=== PATIENT | male | born 1965 | race Caucasian/White ===

== ENCOUNTER 2017-05-08 09:23 | Inpatient (IN) ==
[2017-05-08] MEDS ORDERED: 0.9 % Sodium Chloride 1,000 ML IVC ONE (09:57)
[2017-05-08 10:23] LABS: Basophils # 0.1 K/mcL (0.0-0.2); Basophils % 0.5 %; Eosinophils # 0.2 K/mcL (0.0-0.6); Eosinophils % 1.1 %; Hematocrit 30.2 % (37.5-50.1); Hemoglobin 9.5 g/dL (12.9-16.9); Immature Granulocytes % 1.9 % (0-4); Lymphocytes # 1.5 K/mcL (0.6-4.6); Lymphocytes % 7.9 %; Mean Corpuscular HGB Conc 31.5 g/dL (31.6-35.5); Mean Corpuscular Hemoglobin 23.3 pg (28.0-33.3); Mean Corpuscular Volume 74.2 fL (83.0-100.0); Mean Platelet Volume 10.3 fL (9.4-12.4); Monocytes # 2.7 K/mcL (0.0-1.3); Monocytes % 14.5 %; Neutrophils # 13.9 K/mcL (1.6-8.9); Platelet Count 281 K/mcL (140-400); Red Blood Count 4.07 M/mcL (4.19-5.50); Red Cell Distribution Width 18.6 % (11.5-14.5); Segmented Neutrophils % 74.1 %
[2017-05-08 10:28] LABS: INR 1.6; Prothrombin Time 17.7 Seconds (9.4-12.1)
[2017-05-08 10:38] LABS: Alanine Aminotransferase 32 Units/L (0-55); Albumin/Globulin Ratio 0.3 (1.1-2.2); Alkaline Phosphatase 606 Units/L (38-126); Aspartate Amino Transferase 49 Units/L (5-34); BUN/Creatinine Ratio 22 (6-26); Bilirubin,Total 1.4 mg/dL (0.2-1.2); Blood Urea Nitrogen 17 mg/dL (8-26); Calcium 8.4 mg/dL (8.6-10.8); Carbon Dioxide 24 mEq/L (19-29); Chloride 100 mEq/L (98-109); Globulin 5.6 g/dL (2.4-3.5); Glucose 98 mg/dL (70-99); Osmolality,Calculated 278 (280-300); Potassium 4.2 mEq/L (3.5-4.5); Sodium 133 mEq/L (136-145); Total Protein 7.3 g/dL (6.0-8.3); eGFR For African Americans > 60 (> 60); eGFR For Non-African Americans > 60 (> 60)
[2017-05-08 10:41] LABS: Albumin 1.7 g/dL (3.5-5.0)
[2017-05-08] MEDS ORDERED: *HR* Heparin 5,000 UNIT/ML VIAL IVP ONE (12:03)
[2017-05-08] MEDS ORDERED: Heparin 25,000 UNIT/500 ML D5W 25,000 UNIT/500 ML MLS IVC SCH (12:15)
--- NOTE | 2017-05-08 13:11 | Emergency Department Note ---
Addendum entered and electronically signed by Agustín Canela DO 05/09/17 07:24: Ek08 may 2017 at 0943 hrs: Sinus Tachycardia at a rate of 100BPM without ST elevation or derpression. compared with previous shows sinus rhthym Original Note: Disposition Clinical Impression: Bilateral pulmonary embolism, Liver nodule, Hepatic metastases, Acute bilateral deep vein thrombosis (DVT) of iliac veins of lower extremities, Acute bilateral deep vein thrombosis (DVT) of femoral veins DVT, bilateral lower limbs Qualifiers: Affected thrombotic vein of extremity: femoral Chronicity: acute Qualified Code (s): I82.413 - Acute embolism and thrombosis of femoral vein, bilateral Disposition: Admitted As Inpatient Condition: Serious Time of Disposition: 14:00 General Adult HPI - General Chief complaint: ED Extremity Problem,Nontraumatic Stated complaint: BLE pain, "dvt" Time Seen by Provider: 05/08/17 09:32 Source: patient Mode of arrival: ambulatory Limitations: no limitations Nursing Notes Reviewed: Yes Vital Signs Reviewed: Yes - History of Present Illness HPI Narrative: Patient is a 52-year-old male who was referred to the ED by his PCP Zaina Meade for complaints of bilateral lower extremity swelling and pain. Patient was identified as having bilateral lower extremity DVTs 1 day ago. Patient left AGAINST MEDICAL ADVICE and came back today. Patient presents with tachycardia but no shortness of breath no abdominal pain. Patient does not complain of leg pain at this time. 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 Patient states he has not seen a doctor in 30 years. Pain Scale: 8 - Related Data Home Medications Medication Instructions Recorded Confirmed No Known Home Drugs 05/08/17 05/08/17 Allergies Allergy/AdvReac Type Severity Reaction Status Date / Time lidocaine Allergy Agitated Verified 05/08/17 09:28 All systems ED: reviewed and negative except as stated. Review of Systems: As Per HPI Constitutional: Denies: fever, chills, weakness Eyes: Denies: vision change ENT ED: Denies: congestion Cardiovascular: Denies: chest pain Respiratory: Denies: cough, dyspnea, wheezes Gastrointestinal: Denies: abdominal pain, nausea, vomiting, diarrhea Genitourinary: Denies: urgency, dysuria Musculoskeletal: Denies: back pain, neck pain Integumentary: Denies: rash Neurological: Denies: headache Psychiatric: Denies: anxiety Endocrine: Denies: fatigue Past Medical History - Past Medical History Attestation: Yes The following information was validated with the patient. Source: patient Medical history: Reports: no medical history Psychiatric history: Reports: no psych history - Social History Smoking Status: Current every day smoker Smokeless Tobacco Status: No Alcohol use: Reports: none Drug use: Reports: marijuana Physical Exam Patient is a 52-year-old male who is alert and oriented 3 in no acute distress. Patient has no conversational dyspnea. - General Limitations: no limitations General appearance: alert, in no apparent distress - Head Head exam: atraumatic, normocephalic, normal inspection - Eye Eye exam: Present: normal appearance, PERRL, EOMI - ENT ENT exam: normal exam, normal oropharynx, mucous membranes dry - Neck Neck exam: Present: normal inspection, full ROM, trachea midline. Absent: tenderness - Chest Chest inspection: Present: normal inspection, symmetric chest wall rise. Absent : tenderness, rash - Respiratory Respiratory exam: Present: normal lung sounds bilaterally. Absent: wheezes - Cardiovascular Cardiovascular exam: Present: normal rhythm, tachycardia - Abdominal Exam Abdominal exam: Present: other (Abdomen nontender to palpation soft on the left hemisphere of the abdomen but solid on the right side. Patient's liver palpable almost always patient's hip on the right side.) - Extremities Exam Extremities exam: Present: pedal edema (Bilateral 2+ pitting edema). Absent: normal inspection, tenderness - Back Exam Back exam: Present: normal inspection. Absent: tenderness, CVA tenderness (R), CVA tenderness (L) - Neurological Exam Neurological exam: Present: alert, oriented X3 Course Vital Signs Temperature 98.1 F 05/08/17 09:25 Pulse Rate 111 05/08/17 09:25 Respiratory Rate 16 05/08/17 09:25 Blood Pressure 121/85 05/08/17 09:25 O2 Sat by Pulse Oximetry 98 05/08/17 09:25 Temperature 98.7 F 05/10/17 15:20 Pulse Rate 112 05/10/17 15:20 Respiratory Rate 16 05/10/17 15:20 Blood Pressure 120/76 05/10/17 15:20 O2 Sat by Pulse Oximetry 97 05/10/17 15:20 Oxygen Delivery Oxygen Delivery Room Air Medical Decision Making - MDM Narrative Medical decision making narrative: Patient presented with bilateral lower extremity DVTs confirm an Doppler ultrasound of lower extremities times one day ago. When he presented today he was tachycardic which raise concerns for PE. Patient also had irregular abdominal exam with right hemisphere of his abdomen with a palpable solid mass secondary to low lying liver. Patient's combination of signs and symptoms raise further concern for neoplastic process and CT abdomen and pelvis was obtained. Results showed: IMPRESSION: Per radiology: 1. Acute bilateral pulmonary emboli with the largest embolus in a segmental branch of the right lower lobe. Associated pulmonary infarct in the posterior basal right lower lobe. RV:LV ratio measures 1.2 which is considered abnormal. 2. Bilateral common femoral and external iliac vein occlusive deep venous thrombosis. No definite common iliac vein extension. 3. Centrilobular 2 mm nodules scattered throughout the lungs. The primary consideration is an infectious etiology. 4. Multiple hepatic metastases with the largest measuring up to 9 cm. 5. Enlarged upper abdominal lymph nodes compatible with neoplastic involvement. 6. Questionable wall thickening in the cecum/right colon. No other site for the primary neoplasm is identified. 7. Small-moderate amount of ascites. Patient started on heparin bolus and 70 units per kilogram and heparin drip at 14 units per kilogram per hour. Patient's not having any pain. I consulted oncology and discussed the case with Aravind Martinez nurse practitioner who stated that Dr. Morales is road freight conductor and advised me to order B12, folate , TSH, serum light chain, protein electrophoresis, ferritin, iron studies. Recommended admission to the patient. Patient accepted decision for admission. Patient is admitted for medical management and will see oncology inpatient. Dr. Longo accepted Pt for admission at 1419hrs. - Medical Records Medical records reviewed: Yes I reviewed the patient's medical records. - Lab Data Lab results reviewed: Yes I reviewed the patient's lab results. Lab results narrative: Short CBC 05/08/17 Range/Units 10:14 WBC 18.8 H (4.3-11.1) K/mcL Hgb 9.5 L (12.9-16.9) g/dL Hct 30.2 L (37.5-50.1) % Plt Count 281 (140-400) K/mcL Neutrophils # 13.9 H (1.6-8.9) K/mcL BMP 05/08/17 Range/Units 10:14 Sodium 133 L (136-145) mEq/L Potassium 4.2 (3.5-4.5) mEq/L Chloride 100 (98-109) mEq/L Carbon Dioxide 24 (19-29) mEq/L BUN 17 (8-26) mg/dL Creatinine 0.77 (0.72-1.25) mg/dL Glucose 98 (70-99) mg/dL Calcium 8.4 L (8.6-10.8) mg/dL Cardiac Enzymes 05/08/17 05/08/17 05/08/17 Range/Units 20:26 14:21 10:14 Troponin I 0.01 0.00 0.00 (0-0.03) ng/mL Liver Function 05/08/17 05/08/17 Range/Units 14:21 10:14 Total Bilirubin 1.4 H (0.2-1.2) mg/dL AST 55 H 49 H (5-34) Units/L ALT 32 (0-55) Units/L Alkaline Phosphatase 606 H (38-126) Units/L Albumin 1.7 L (3.5-5.0) g/dL Result diagrams: 05/10/17 14:47 05/10/17 14:47 Lab Results 05/08/17 05/08/17 05/08/17 Range/Units 10:14 10:14 10:14 WBC 18.8 H (4.3-11.1) K/mcL RBC 4.07 L (4.19-5.50) M/mcL Hgb 9.5 L (12.9-16.9) g/dL Hct 30.2 L (37.5-50.1) % MCV 74.2 L (83.0-100.0) fL MCH 23.3 L (28.0-33.3) pg MCHC 31.5 L (31.6-35.5) g/dL RDW 18.6 H (11.5-14.5) % Plt Count 281 (140-400) K/mcL MPV 10.3 (9.4-12.4) fL Immature Gran % 1.9 (0-4) % Seg Neutrophils % 74.1 % Lymphocytes % 7.9 % Monocytes % 14.5 % Eosinophils % 1.1 % Basophils % 0.5 % Neutrophils # 13.9 H (1.6-8.9) K/mcL Lymphocytes # 1.5 (0.6-4.6) K/mcL Monocytes # 2.7 H (0.0-1.3) K/mcL Eosinophils # 0.2 (0.0-0.6) K/mcL Basophils # 0.1 (0.0-0.2) K/mcL PT 17.7 H (9.4-12.1) Seconds INR 1.6 APTT 32.0 (26.0-36.0) Seconds Sodium 133 L (136-145) mEq/L Potassium 4.2 (3.5-4.5) mEq/L Chloride 100 (98-109) mEq/L Carbon Dioxide 24 (19-29) mEq/L BUN 17 (8-26) mg/dL Creatinine 0.77 (0.72-1.25) mg/dL Est GFR ( Amer) > 60 (> 60) Est GFR (Non-Af Amer) > 60 (> 60) BUN/Creatinine Ratio 22 (6-26) Glucose 98 (70-99) mg/dL POC Glucose (58-89) Calculated Osmolality 278 L (280-300) Lactic Acid (0.5-2.2) mmol/L Calcium 8.4 L (8.6-10.8) mg/dL Iron (65-175) mcg/dL % Saturation (20-55) % Transferrin (174-364) mg/dL Ferritin (22-275) ng/ml Total Bilirubin 1.4 H (0.2-1.2) mg/dL AST 49 H (5-34) Units/L ALT 32 (0-55) Units/L Alkaline Phosphatase 606 H (38-126) Units/L Lactate Dehydrogenase (159-327) Units/L Troponin I (0-0.03) ng/mL B-Natriuretic Peptide (0-100) pg/mL Serum Total Protein 7.3 (6.0-8.3) g/dL Albumin 1.7 L (3.5-5.0) g/dL Globulin 5.6 H (2.4-3.5) g/dL Albumin/Globulin Ratio 0.3 L (1.1-2.2) Carcinoembryonic Ag (0-5.0) ng/mL Vitamin B12 (213-816) pg/mL Folate (7.0-31.4) ng/mL TSH (0.350-4.840) mcIU/mL 05/08/17 05/08/17 05/08/17 Range/Units 10:14 10:14 11:40 WBC (4.3-11.1) K/mcL RBC (4.19-5.50) M/mcL Hgb (12.9-16.9) g/dL Hct (37.5-50.1) % MCV (83.0-100.0) fL MCH (28.0-33.3) pg MCHC (31.6-35.5) g/dL RDW (11.5-14.5) % Plt Count (140-400) K/mcL MPV (9.4-12.4) fL Immature Gran % (0-4) % Seg Neutrophils % % Lymphocytes % % Monocytes % % Eosinophils % % Basophils % % Neutrophils # (1.6-8.9) K/mcL Lymphocytes # (0.6-4.6) K/mcL Monocytes # (0.0-1.3) K/mcL Eosinophils # (0.0-0.6) K/mcL Basophils # (0.0-0.2) K/mcL PT (9.4-12.1) Seconds INR APTT (26.0-36.0) Seconds Sodium (136-145) mEq/L Potassium (3.5-4.5) mEq/L Chloride (98-109) mEq/L Carbon Dioxide (19-29) mEq/L BUN (8-26) mg/dL Creatinine (0.72-1.25) mg/dL Est GFR ( Amer) (> 60) Est GFR (Non-Af Amer) (> 60) BUN/Creatinine Ratio (6-26) Glucose (70-99) mg/dL POC Glucose (58-89) Calculated Osmolality (280-300) Lactic Acid 1.8 (0.5-2.2) mmol/L Calcium (8.6-10.8) mg/dL Iron (65-175) mcg/dL % Saturation (20-55) % Transferrin (174-364) mg/dL Ferritin (22-275) ng/ml Total Bilirubin (0.2-1.2) mg/dL AST (5-34) Units/L ALT (0-55) Units/L Alkaline Phosphatase (38-126) Units/L Lactate Dehydrogenase (159-327) Units/L Troponin I 0.00 (0-0.03) ng/mL B-Natriuretic Peptide 82 (0-100) pg/mL Serum Total Protein (6.0-8.3) g/dL Albumin (3.5-5.0) g/dL Globulin (2.4-3.5) g/dL Albumin/Globulin Ratio (1.1-2.2) Carcinoembryonic Ag (0-5.0) ng/mL Vitamin B12 (213-816) pg/mL Folate (7.0-31.4) ng/mL TSH (0.350-4.840) mcIU/mL 05/08/17 05/08/17 05/08/17 Range/Units 14:21 14:21 14:21 WBC (4.3-11.1) K/mcL RBC (4.19-5.50) M/mcL Hgb (12.9-16.9) g/dL Hct (37.5-50.1) % MCV (83.0-100.0) fL MCH (28.0-33.3) pg MCHC (31.6-35.5) g/dL RDW (11.5-14.5) % Plt Count (140-400) K/mcL MPV (9.4-12.4) fL Immature Gran % (0-4) % Seg Neutrophils % % Lymphocytes % % Monocytes % % Eosinophils % % Basophils % % Neutrophils # (1.6-8.9) K/mcL Lymphocytes # (0.6-4.6) K/mcL Monocytes # (0.0-1.3) K/mcL Eosinophils # (0.0-0.6) K/mcL Basophils # (0.0-0.2) K/mcL PT (9.4-12.1) Seconds INR APTT (26.0-36.0) Seconds Sodium (136-145) mEq/L Potassium (3.5-4.5) mEq/L Chloride (98-109) mEq/L Carbon Dioxide (19-29) mEq/L BUN (8-26) mg/dL Creatinine (0.72-1.25) mg/dL Est GFR ( Amer) (> 60) Est GFR (Non-Af Amer) (> 60) BUN/Creatinine Ratio (6-26) Glucose (70-99) mg/dL POC Glucose (58-89) Calculated Osmolality (280-300) Lactic Acid (0.5-2.2) mmol/L Calcium (8.6-10.8) mg/dL Iron 20 L (65-175) mcg/dL % Saturation 11 L (20-55) % Transferrin 132 L (174-364) mg/dL Ferritin 1016 H (22-275) ng/ml Total Bilirubin (0.2-1.2) mg/dL AST 55 H (5-34) Units/L ALT (0-55) Units/L Alkaline Phosphatase (38-126) Units/L Lactate Dehydrogenase 258 (159-327) Units/L Troponin I 0.00 (0-0.03) ng/mL B-Natriuretic Peptide (0-100) pg/mL Serum Total Protein (6.0-8.3) g/dL Albumin (3.5-5.0) g/dL Globulin (2.4-3.5) g/dL Albumin/Globulin Ratio (1.1-2.2) Carcinoembryonic Ag 14.9 H (0-5.0) ng/mL Vitamin B12 > 2000 H (213-816) pg/mL Folate 9.4 (7.0-31.4) ng/mL TSH 2.131 (0.350-4.840) mcIU/mL 05/08/17 Range/Units 14:43 WBC (4.3-11.1) K/mcL RBC (4.19-5.50) M/mcL Hgb (12.9-16.9) g/dL Hct (37.5-50.1) % MCV (83.0-100.0) fL MCH (28.0-33.3) pg MCHC (31.6-35.5) g/dL RDW (11.5-14.5) % Plt Count (140-400) K/mcL MPV (9.4-12.4) fL Immature Gran % (0-4) % Seg Neutrophils % % Lymphocytes % % Monocytes % % Eosinophils % % Basophils % % Neutrophils # (1.6-8.9) K/mcL Lymphocytes # (0.6-4.6) K/mcL Monocytes # (0.0-1.3) K/mcL Eosinophils # (0.0-0.6) K/mcL Basophils # (0.0-0.2) K/mcL PT (9.4-12.1) Seconds INR APTT (26.0-36.0) Seconds Sodium (136-145) mEq/L Potassium (3.5-4.5) mEq/L Chloride (98-109) mEq/L Carbon Dioxide (19-29) mEq/L BUN (8-26) mg/dL Creatinine (0.72-1.25) mg/dL Est GFR ( Amer) (> 60) Est GFR (Non-Af Amer) (> 60) BUN/Creatinine Ratio (6-26) Glucose (70-99) mg/dL POC Glucose 91 H (58-89) Calculated Osmolality (280-300) Lactic Acid (0.5-2.2) mmol/L Calcium (8.6-10.8) mg/dL Iron (65-175) mcg/dL % Saturation (20-55) % Transferrin (174-364) mg/dL Ferritin (22-275) ng/ml Total Bilirubin (0.2-1.2) mg/dL AST (5-34) Units/L ALT (0-55) Units/L Alkaline Phosphatase (38-126) Units/L Lactate Dehydrogenase (159-327) Units/L Troponin I (0-0.03) ng/mL B-Natriuretic Peptide (0-100) pg/mL Serum Total Protein (6.0-8.3) g/dL Albumin (3.5-5.0) g/dL Globulin (2.4-3.5) g/dL Albumin/Globulin Ratio (1.1-2.2) Carcinoembryonic Ag (0-5.0) ng/mL Vitamin B12 (213-816) pg/mL Folate (7.0-31.4) ng/mL TSH (0.350-4.840) mcIU/mL - Radiology Data Radiology results reviewed: Yes I reviewed the patient's radiology results. Abdomen/Pelvis CT 05/08/17 09:58 IMPRESSION: 1. Acute bilateral pulmonary emboli with the largest embolus in a segmental branch of the right lower lobe. Associated pulmonary infarct in the posterior basal right lower lobe. RV:LV ratio measures 1.2 which is considered abnormal. 2. Bilateral common femoral and external iliac vein occlusive deep venous thrombosis. No definite common iliac vein extension. 3. Centrilobular 2 mm nodules scattered throughout the lungs. The primary consideration is an infectious etiology. 4. Multiple hepatic metastases with the largest measuring up to 9 cm. 5. Enlarged upper abdominal lymph nodes compatible with neoplastic involvement. 6. Questionable wall thickening in the cecum/right colon. No other site for the primary neoplasm is identified. 7. Small-moderate amount of ascites. Critical results were called by Dr. Ben Falcon MD to Dr. Phelan on 05/08/2017 at 11:57. D/ / 05/08/2017 12:06:10 Ben Falcon MD / nika Interpreting Provider: Ben Falcon MD Chest CTA 05/08/17 09:58 IMPRESSION: 1. Acute bilateral pulmonary emboli with the largest embolus in a segmental branch of the right lower lobe. Associated pulmonary infarct in the posterior basal right lower lobe. RV:LV ratio measures 1.2 which is considered abnormal. 2. Bilateral common femoral and external iliac vein occlusive deep venous thrombosis. No definite common iliac vein extension. 3. Centrilobular 2 mm nodules scattered throughout the lungs. The primary consideration is an infectious etiology. 4. Multiple hepatic metastases with the largest measuring up to 9 cm. 5. Enlarged upper abdominal lymph nodes compatible with neoplastic involvement. 6. Questionable wall thickening in the cecum/right colon. No other site for the primary neoplasm is identified. 7. Small-moderate amount of ascites. Critical results were called by Dr. Ben Falcon MD to Dr. Phelan on 05/08/2017 at 11:57. D/ / 05/08/2017 12:06:10 Ben Falcon MD / nika Interpreting Provider: Ben Falcon MD Attestation Statement - Attestation Attestation: I examined this patient and my medical decision-making was reviewed with the Resident Physician, Dr. Canela. I agree with the documented findings, disposition and treatment plan as described except to the extent set forth below. Pt is a 52 yo wm who presents to the ED after having an outpt bilateral LE venous duplex study performed yesterday at [facility], which was ordered by his PCP for c/o bilateral LE pain. Pt was told that he had blood clots in both LE's, and recommended he go to the ER. Pt instead went home, and returns tonight in regards to his abnormal US findings. Pt deneis any other complaints. No prior hx DVT/PE, no recent trauma/hospitalization. Pt denies any significant PMHx, but states he has not seen a doctor in over 30 years. Pt in NAD on arrival and denies any CP/press/heaviness, no SOB, no palpitations, no abd pain/back pain, no other assocd sxs. Pt arrives with sinus tachycardia, but other VS stable. I agree with pt's PE findings as documented. Pt placed on security monitor, cont pulse oc, and IVF initiated. EKG shows sinus tach, without acute ischemic changes. Concerned with pt's tachycardia, and upon review of US findings in the medical records, pt appears to have a large clot burden with clot presnt throughout the bilateral LE's. Decided to perform CTA chest to r/o PE, as this is clinically suspicious. Pt afebrile, and denies any sxs currently. Pt with leukocytosis, IVF continued and lactate added. Pt remained hemodynamically stable throughout ED course, with improvement in his HR with IVF. Contacted by radiology regarding pt's CT results, Pt with bilateral PE, no saddle embolus. RLL clot greater than left and includes RLL infarct. Pt also with liver masses and metastasis, unclear as to primary neoplasm. Pt with ascites and enlarged LN's of upper abd. D/W Oncologist, and consulted from ED. Added labs based on their recommendations , and d/w hospitalist who accepted pt for admission. Results d/w pt and agreed to admission for further eval/mgmt.
--- NOTE | 2017-05-08 14:14 | Internal Med History&Physical ---
Date of Encounter: 05/09/17 Time of Encounter: 14:13 Assessment and Plan (1) Bilateral pulmonary embolism Current visit: Yes Status: Acute 52/male Admitted with worsening leg swelling. Started a week ago as a swelling of the ankle and gradually progress up to mid thighs. Patient also experienced worsening shortness of breath on minimal exertion. Patient was evaluated in the emergency room. Noted that patient had a extensive bilateral lower extremity thrombosis along with acute pulmonary embolism. CT scan of the abdomen was suggestive of a multiple hepatic masses. The largest mass was around 9 cm in diameter. Plan: Admit as inpatient. Intravenous heparin for acute pulmonary embolism PT/PTT CBC/CMP Interventional radiology consult for possible biopsy of the liver. I had a long extensive discussion with the patient and his daughter regarding the above findings. At this point the CODE STATUS is full code. Patient prefers his daughter to be POA and she will take the decision if things worsens. (2) DVT, bilateral lower limbs Current visit: Yes Status: Acute Extensive deep vein thrombosis bilateral lower extremity This is likely secondary to the procoagulant nature is likely secondary to the underlying malignancy. Qualifiers: Affected thrombotic vein of extremity: femoral Chronicity: acute Qualified Code(s): I82.413 - Acute embolism and thrombosis of femoral vein, bilateral (3) Hepatic metastases Current visit: Yes Status: Acute Large multiple nodular opacities in the liver. (4) DVT prophylaxis Current visit: Yes Status: Acute Patient is on heparin drip. Medical decision making: This patient has a moderate to severe risk of worsening due to the acuity of the problem and underlying nature of the disease. Internal Medicine - H&P: HPI Chief complaint: leg swelling Admitted From: Emergency Dept Plans for Post Hospital Care: Home History of present illness: PCP: Patient does not have a PCP. Brief past medical history: Patient has not visited a physician in last 30 years. History of present medical illness: Patient noted gradually worsening swelling in his bilateral lower extremity for the past 1 week. The swelling initially started in his ankle area which was gradually worsened up to his mid thighs. Patient claims that on minimal exertion he is not short of breath. Patient denies any cough/chest pain. Patient was evaluated in the emergency room. Course in the emergency room: Ultrasound of the lower extremity was suggestive of a deep vein thrombosis. CT chest was done and which showed acute pulmonary embolism. CT scan of the abdomen shows large extensive hepatic mass which is more than 9 cm along with multiple small nodules. Reason for admission: Intravenous heparin administration for acute pulmonary embolism and workup of the metastatic probable malignancy. Family history: Noncontributory Past Med Surg Social Fam HX - Past Medical History Medical history: no medical history Psychiatric history: no psych history - Social History Smoking Status: Current every day smoker Smokeless Tobacco Status: No Alcohol use: none Drug use: marijuana - Family History Mother History Unknown: Yes Living Status: Still Living Hx Family Endocrine Disorder: Yes (diabetes) Internal Medicine - H&P: Meds No Known Home Drugs 05/08/17 [History] 3 Allergy/AdvReac Type Severity Reaction Status Date / Time lidocaine Allergy Agitated Verified 05/08/17 09:28 All Systems PM: A 10-system review of systems was performed and is negative for pertinent findings except as documented above in the HPI. - Constitutional Constitutional: no chills, no fever(s), no night sweats - EENT Eyes: no change in vision, no discharge, no pain, no photophobia Ears: no ear discharge, no ear pain, no tinnitus Nose, mouth and throat: no dysphagia, no nasal discharge, no neck pain, no sore throat - Cardiovascular Cardiovascular ROS IM: claudication, diaphoresis, dyspnea, edema - Respiratory Respiratory: cough, dyspnea, no wheezing, no excessive phlegm production - Gastrointestinal Gastrointestinal: no abdominal pain, no diarrhea, no hematemesis, no hematochezia, no melena, no nausea, no vomiting - Musculoskeletal Musculoskeletal ROS IM: no numbness, no tingling - Integumentary Integumentary IM: no rash, no unusual bruising - Neurological Neurological ROS: no confusion, no convulsions, no focal weakness, no numbness, no tingling, no tremor(s) - Hematologic/Lymphatic Hematologic/Lymphatic: no easy bruising - Constitutional Vitals: Temp Pulse Resp BP Pulse Ox 98.1 F 104 12 116/74 97 05/08/17 09:25 05/08/17 09:44 05/08/17 13:26 05/08/17 13:26 05/08/17 09:44 General appearance: Present: A&O X 3, pleasant, no acute distress, answers questions appropriately - Head Head exam: Present: atraumatic, normocephalic - Eye Eye exam: Present: PERRL, conjuntiva pink, sclera anicteric Pupils: Present: PERRL - Neck Neck exam general surgery: Present: supple, trachea midline. Absent: lymphadenopathy - Respiratory Respiratory exam: Present: CTAB. Absent: accessory muscle use, rales, rhonchi, wheezes - Cardiovascular Cardiovascular exam: Present: RRR, +S1, +S2. Absent: diastolic murmur, gallop, rubs, systolic murmur - GI/Abdominal GI/Abdominal exam: Present: normal bowel sounds, soft, no peritoneal signs. Absent: distended, tenderness - Extremities Exam Extremities exam: Present: warm, radial pulses palpable and symmetrical. Absent : calf tenderness, cyanotic, pedal edema - Neurological Exam Neurological exam: Present: CN II-XII intact, oriented X3, no focal deficits. Absent: pronater drift, facial droop, speech deficit - Skin Skin exam: Present: dry, intact Internal Med - H&P Results - Labs CBC & Chem 7: 05/09/17 05:08 05/09/17 05:08
[2017-05-08] MEDS ORDERED: Naloxone 0.4 MG/ML INJ IVP PRN (14:19)
[2017-05-08 15:30] LABS: Carcinoembryonic Antigen 14.9 ng/mL (0-5.0); Thyroid Stimulating Hormone 2.131 mcIU/mL (0.350-4.840)
[2017-05-08 15:44] LABS: Folate 9.4 ng/mL (7.0-31.4)
[2017-05-08 15:45] LABS: Vitamin B12 > 2000 pg/mL (213-816)
[2017-05-08] MEDS ORDERED: *HR* Heparin 5,000 UNIT/ML VIAL IVP PRN (21:32)
[2017-05-08] MEDS: Heparin 25,000 UNIT/500 ML D5W 25,000 UNIT/500 ML MLS IVC SCH (22:35)
[2017-05-08] MEDS: *HR* Heparin 5,000 UNIT/ML VIAL IVP PRN (22:37)
[2017-05-09 05:29] LABS: Basophils # 0.1 K/mcL (0.0-0.2); Basophils % 0.6 %; Eosinophils # 0.4 K/mcL (0.0-0.6); Eosinophils % 2.1 %; Hematocrit 26.9 % (37.5-50.1); Hemoglobin 8.3 g/dL (12.9-16.9); Immature Granulocytes % 1.6 % (0-4); Lymphocytes # 1.6 K/mcL (0.6-4.6); Lymphocytes % 8.9 %; Mean Corpuscular HGB Conc 30.9 g/dL (31.6-35.5); Mean Corpuscular Hemoglobin 22.9 pg (28.0-33.3); Mean Corpuscular Volume 74.1 fL (83.0-100.0); Mean Platelet Volume 10.4 fL (9.4-12.4); Monocytes # 2.5 K/mcL (0.0-1.3); Monocytes % 14.2 %; Neutrophils # 12.9 K/mcL (1.6-8.9); Platelet Count 302 K/mcL (140-400); Red Blood Count 3.63 M/mcL (4.19-5.50); Red Cell Distribution Width 18.6 % (11.5-14.5); Segmented Neutrophils % 72.6 %
[2017-05-09 05:46] LABS: Alanine Aminotransferase 29 Units/L (0-55); Albumin/Globulin Ratio 0.3 (1.1-2.2); Alkaline Phosphatase 537 Units/L (38-126); Aspartate Amino Transferase 53 Units/L (5-34); BUN/Creatinine Ratio 23 (6-26); Bilirubin,Total 1.6 mg/dL (0.2-1.2); Blood Urea Nitrogen 18 mg/dL (8-26); Calcium 8.1 mg/dL (8.6-10.8); Carbon Dioxide 24 mEq/L (19-29); Chloride 102 mEq/L (98-109); Chol/HDL Ratio 8.8 (0-4.9); Glucose 98 mg/dL (70-99); HDL Cholesterol 8 mg/dL (40-59); LDL Cholesterol,Calculated 43 mg/dL (0-99); Magnesium 1.6 mg/dL (1.6-2.6); Osmolality,Calculated 276 (280-300); Phosphorous 3.5 mg/dL (2.3-4.7); Potassium 4.1 mEq/L (3.5-4.5); Sodium 132 mEq/L (136-145); Total Protein 6.5 g/dL (6.0-8.3); Triglycerides 97 mg/dL (< 150); eGFR For African Americans > 60 (> 60); eGFR For Non-African Americans > 60 (> 60)
[2017-05-09 05:54] LABS: Albumin 1.5 g/dL (3.5-5.0); Cholesterol 70 mg/dL (< 200)
[2017-05-09] MEDS: *HR* Heparin 5,000 UNIT/ML VIAL IVP PRN ×2 (05:57→17:36)
--- NOTE | 2017-05-09 09:19 | Electrocardiograph Report ---
[facility] Test Date: 2017-05-08 Pat Name: Nam Nunn Department: 102 Room: 2NE19 Gender: M Cheesemaker: : 1965 Requested By: Agustín Canela Order Number: [id number] Tasneem MD: Kingsley Lynn MD Measurements Intervals [place] Rate: 100 P: 77 [place]: 144 QRS: 56 QRSD: 71 T: 70 QT: 347 QTc: 404 Interpretive Statements SINUS TACHYCARDIA ABNORMAL RHYTHM ECG Electronically Signed On 05-09-2017 9:17:49 EDT by Kingsley Lynn MD
--- NOTE | 2017-05-09 10:28 | Internal Med Progress Note ---
Date of Encounter: 05/09/17 Time of Encounter: 10:27 - Assessment and plan (1) Bilateral pulmonary embolism Current Visit: Yes Status: Acute (2) DVT, bilateral lower limbs Current Visit: Yes Status: Acute Qualifiers: Affected thrombotic vein of extremity: femoral Chronicity: acute Qualified Code(s): I82.413 - Acute embolism and thrombosis of femoral vein, bilateral (3) Hepatic metastases Current Visit: Yes Status: Acute (4) DVT prophylaxis Current Visit: Yes Status: Acute - Subjective Interval history: Patient seen and examined. Chart reviewed. Patient is comfortably lying in the bed. Patient's daughter is at bedside. - Constitutional Vitals: Temp Pulse Resp BP Pulse Ox 97.9 F 94 17 115/76 97 05/09/17 07:00 05/09/17 07:00 05/09/17 07:00 05/09/17 07:00 05/09/17 07:00 General appearance: Present: A&O X 3, pleasant, no acute distress, answers questions appropriately - Head Head exam: Present: atraumatic, normocephalic - Eye Eye exam: Present: PERRL, conjuntiva pink, sclera anicteric Pupils: Present: PERRL - Neck Neck exam general surgery: Present: supple, trachea midline. Absent: lymphadenopathy - Respiratory Respiratory exam: Present: CTAB. Absent: accessory muscle use, rales, rhonchi, wheezes - Cardiovascular Cardiovascular exam: Present: RRR, +S1, +S2. Absent: diastolic murmur, gallop, rubs, systolic murmur - GI/Abdominal GI/Abdominal exam: Present: normal bowel sounds, soft, no peritoneal signs. Absent: distended, tenderness - Extremities Exam Extremities exam: Present: warm, radial pulses palpable and symmetrical. Absent : calf tenderness, cyanotic, pedal edema - Neurological Exam Neurological exam: Present: CN II-XII intact, oriented X3, no focal deficits. Absent: pronater drift, facial droop, speech deficit - Skin Skin exam: Present: dry, intact Internal Medicine: Result - Labs CBC & Chem 7: 05/09/17 05:08 05/09/17 05:08 Labs: Short CBC 05/09/17 Range/Units 05:08 WBC 17.8 H (4.3-11.1) K/mcL Hgb 8.3 L (12.9-16.9) g/dL Hct 26.9 L (37.5-50.1) % Plt Count 302 (140-400) K/mcL Neutrophils # 12.9 H (1.6-8.9) K/mcL BMP 05/09/17 05:08 Sodium 132 L Potassium 4.1 Chloride 102 Carbon Dioxide 24 BUN 18 Creatinine 0.77 Glucose 98 Calcium 8.1 L Cardiac Enzymes 05/08/17 05/09/17 Range/Units 20:26 05:08 Troponin I 0.01 0.00 (0-0.03) ng/mL Liver Function 05/09/17 Range/Units 05:08 Total Bilirubin 1.6 H (0.2-1.2) mg/dL AST 53 H (5-34) Units/L ALT 29 (0-55) Units/L Alkaline Phosphatase 537 H (38-126) Units/L Albumin 1.5 L (3.5-5.0) g/dL - ABG Interpretation ABG results: PT/INR, D-dimer PT 17.7 Seconds (9.4-12.1) H 05/08/17 10:14 Consult Discharge Plan - Plan Referrals: Zaina Meade CNP [Primary Care Provider] - Larry Pineda [Family Provider] -
[2017-05-09] MEDS ORDERED: Lidocaine -MPF 1% 5 ML AMPUL ONE (12:10)
--- NOTE | 2017-05-09 13:32 | Gastroenterology Consult Note ---
<Kayleigh Finney - Last Filed: 05/09/17 13:36> Date of Encounter: 05/09/17 Time of Encounter: 13:10 - Assessment and plan (1) Hepatic metastases Current Visit: Yes Status: Acute Assessment and plan: Pt presents with BLE edema, was found to have DVTs and PE. CT abdomen showed large hepatic mass and nodules, likely malignant. CT guided needle biopsy pathology is pending. AFP pending. Prognosis depends on pathology, will likely need oncology referral. No active bleeding noted. Monitor labs. (2) Bilateral pulmonary embolism Current Visit: Yes Status: Acute Assessment and plan: Pt is currently on heparin drip may be due to malignancy. - Time Spent With Patient Total time spent is greater than 50% in coordination of care (as documented) at patient's floor/unit and/or counseling patient: GI History of Present Illness - Data of Consult Patient: new to practice Consult date: 05/09/17 Requesting Physician: Dhruv Longo MD - Consult Narrative Reason for consult: hepatic mass History of present illness: Mr Nunn is a 52 year old male who presented with BLE edema. He does not have a PCP and has not visited a physician in last 30 years. He noted gradually worsening swelling in his bilateral lower extremity for the past 1 week. Ultrasound of the lower extremity was suggestive of a deep vein thrombosis. CT chest was done and which showed acute pulmonary embolism. CT scan of the abdomen shows large extensive hepatic mass which is more than 9 cm along with multiple small nodules. The swelling initially started in his ankle area which was gradually worsened up to his mid thighs. Patient has minimal exertional dyspnea. Patient denies any cough/chest pain. He denies any abdominal pain , nausea or vomiting. He reports some diarrhea 2-3 times a day the past week, he denies any bloody BM. He denies fever but complains of night sweats. He has increased fatigue. He reports weight loss of 15 pounds the past few month but states his eating habits and appetite have not changed. He denies GERD or dysphagia. He is a current smoker. He denies IV or recreational drug use. He states he drank intermittently in the past but he quit drinking 5 years ago. Patient was evaluated in the emergency room.Course in the emergency room: Labs show hemoglobin of 8.3 WBC 7.8 platelet count 302 INR of 1.6 sodium 132 BUN of 18 creatinine 0.77, calcium 8.1 total bili 1.6 AST 53 ALT 29 albumin 1.5 vitamin B12 greater than 2013 1016 Colonoscopy: denies EGD: denies NSAIDS/ASA: had been taking tylenol and motrin up until 2 weeks ago for tooth abcess Anticoagulants: heparin gtt now, none at home Past Med Surg Social Fam HX - Past Medical History Medical history: no medical history Psychiatric history: no psych history - Past Surgical History Surgical History: no surgical history - Social History Smoking Status: Current every day smoker Smokeless Tobacco Status: No Alcohol use: none Drug use: marijuana - Family History Mother History Unknown: Yes Living Status: Still Living Hx Family Endocrine Disorder: Yes (diabetes) Review of Systems: GI: as per [place] GENERAL: denies fever, some night sweats. EYES: denies yellow discoloration ENT: denies pain with swallowing or difficulty swallowing CARDIO: denies chest pain, palpitations RESP: Shortness of breath with exertion : urine has been dark yellow-orange NEURO: increased weakness and lethargy HEME: Denies any bruising MS: denies joint pain, joint swelling or back pain. DERM: denies rash or itching PSYCH: Denies history of anxiety or depression - Constitutional Vitals: Temp Pulse Resp BP Pulse Ox 97.9 F 94 17 115/76 97 05/09/17 07:00 05/09/17 07:00 05/09/17 07:00 05/09/17 07:00 05/09/17 07:00 Exam: CONSTITUTIONAL:~alert, no acute distress.~HEAD:~normocephalic.~EYES:~icterus noted.~NECK:~no obvious swelling.~HEART:~regular rate and rhythm, no murmurs.~ LUNGS:~bilateral good air entry.~ABDOMEN:~softly distended, non tender, no masses palpable, hepatomegaly noted~RECTAL EXAM:~Deferred.~EXTREMITIES:~ cachectic, no clubbing, or cyanosis, 1+ BLE edema noted.~SKIN:~mild jaundice noted.~NEUROLOGIC:~no obvious focal defect.~~~~ Results - Labs CBC & Chem 7: 05/09/17 05:08 05/09/17 05:08 Labs: Last Result Calcium 8.1 mg/dL (8.6-10.8) L 05/09/17 05:08 Iron 20 mcg/dL (65-175) L 05/08/17 14:21 % Saturation 11 % (20-55) L 05/08/17 14:21 Transferrin 132 mg/dL (174-364) L 05/08/17 14:21 Ferritin 1016 ng/ml (22-275) H 05/08/17 14:21 Troponin I 0.00 ng/mL (0-0.03) 05/09/17 05:08 Triglycerides 97 mg/dL (< 150) 05/09/17 05:08 Vitamin B12 > 2000 pg/mL (213-816) H 05/08/17 14:21 Folate 9.4 ng/mL (7.0-31.4) 05/08/17 14:21 Entire Visit Hgb 8.3 g/dL (12.9-16.9) L 05/09/17 05:08 Hct 26.9 % (37.5-50.1) L 05/09/17 05:08 PT 17.7 Seconds (9.4-12.1) H 05/08/17 10:14 Ferritin 1016 ng/ml (22-275) H 05/08/17 14:21 Total Bilirubin 1.6 mg/dL (0.2-1.2) H 05/09/17 05:08 AST 53 Units/L (5-34) H 05/09/17 05:08 ALT 29 Units/L (0-55) 05/09/17 05:08 Carcinoembryonic Ag 14.9 ng/mL (0-5.0) H 05/08/17 14:21 Folate 9.4 ng/mL (7.0-31.4) 05/08/17 14:21 - ABG ABG results: PT/INR, D-dimer PT 17.7 Seconds (9.4-12.1) H 05/08/17 10:14 Consult Discharge Plan - Plan Referrals: Moy Morales MD [Partnered Physician] - 05/19/17 3:00 pm Zaina Meade CNP [Primary Care Provider] - <Suman Burks - Last Filed: 05/13/17 07:48> Date of Encounter: 05/09/17 - Time Spent With Patient Total time spent is greater than 50% in coordination of care (as documented) at patient's floor/unit and/or counseling patient: GI History of Present Illness - Data of Consult Requesting Physician: Dhruv Longo MD - Consult Narrative History of present illness: Mr. Nunn is a 52 year old male - Constitutional Vitals: Temp Pulse Resp BP Pulse Ox 98.1 F 96 14 110/68 92 05/13/17 06:38 05/13/17 06:38 05/13/17 06:38 05/13/17 06:38 05/13/17 06:38 Results - Labs CBC & Chem 7: 05/12/17 03:18 05/12/17 03:18 Labs: Last Result Calcium 8.3 mg/dL (8.6-10.8) L 05/12/17 03:18 Iron 20 mcg/dL (65-175) L 05/08/17 14:21 % Saturation 11 % (20-55) L 05/08/17 14:21 Transferrin 132 mg/dL (174-364) L 05/08/17 14:21 Ferritin 1016 ng/ml (22-275) H 05/08/17 14:21 Troponin I 0.00 ng/mL (0-0.03) 05/09/17 05:08 Triglycerides 97 mg/dL (< 150) 05/09/17 05:08 Vitamin B12 > 2000 pg/mL (213-816) H 05/08/17 14:21 Folate 9.4 ng/mL (7.0-31.4) 05/08/17 14:21 Entire Visit Hgb 8.2 g/dL (12.9-16.9) L 05/12/17 03:18 Hct 27.0 % (37.5-50.1) L 05/12/17 03:18 PT 17.7 Seconds (9.4-12.1) H 05/08/17 10:14 Ferritin 1016 ng/ml (22-275) H 05/08/17 14:21 Total Bilirubin 1.6 mg/dL (0.2-1.2) H 05/12/17 03:18 AST 38 Units/L (5-34) H 05/12/17 03:18 ALT 26 Units/L (0-55) 05/12/17 03:18 Carcinoembryonic Ag 14.9 ng/mL (0-5.0) H 05/08/17 14:21 Folate 9.4 ng/mL (7.0-31.4) 05/08/17 14:21 - ABG ABG results: PT/INR, D-dimer PT 17.7 Seconds (9.4-12.1) H 05/08/17 10:14 - Attending Attestation Mr Nunn is an unfortunate 52 year old white male with profound weight loss, diminished appetite found to have several masses in his liver on CT scan. Agree with CT guided biopsy. Primary multicentric HCC versus metatstatic cancer. Agree with above note. Further recommendation post bx. Tumor markers ordered. I have personally examined and interviewed Mr Nunn and reviewed his CT scan.
--- NOTE | 2017-05-09 14:46 | IR Procedure Note ---
Date of procedure: 05/09/17 Consent Obtained: Written consent Timeout: Correct patient and procedure verified, Correct site verified, Time out performed, Skin prep completed Indications: liver mets Procedure Performed: liver biopsy Site/Technique: left lobe, US guided Results/Findings: positive Estimated blood loss (cc): 5 Complications: None; Tolerated procedure well Post Procedure Treatment Plan: dc to floor
--- NOTE | 2017-05-09 17:01 | Oncology Inp Consult Note ---
Date of Encounter: 05/09/17 Time of Encounter: 12:00 Assessment and Plan (1) Acute bilateral deep vein thrombosis (DVT) of femoral veins Status: Acute Assessment and plan: and PE bilateral, on IV heparin. Hypercoagulable condition likely from metastatic malignancy. s/p liver bx. Heparin to be resumed. Clinically stable Consider switch to oral anticoagulation-xarelto or eliquis (2) Hepatic metastases Status: Acute Assessment and plan: CEA mildly elevated, cecal thickening. Poossible diff metastatic GI/colon vs upper/multifocal hepatobiliary cancer. Await pathology. Will follow - Data of Consult Requesting Physician: Dhruv Longo MD Primary Care Provider: Zaina Meade Family Provider: Deanne Provider - Consult Narrative Reason for consult: Annabel PE, liver lesions History of present illness: Mr. Nunn is a 52 year old male who presented to the hospital with shortness of breath, lower extremity swelling up to the thighs underwent CT imaging to rule out pulmonary embolism, started on anticoagulation with heparin due to pulmonary embolism bilateral. He also underwent CT scan of the abdomen which showed, ---rt and left hepatic lobe mets largest measuring ~9cm and ~6cm multiple enlarged upper abdominal lymph nodes portacaval region measures ~3.4 and ~ 2.7 x 2[address] chest ac annabel PE, -RV:LV ratio measures 1.2 bilateral common femoral and external iliac vein occlusive deep venous thrombosis. Wall thickening cecum. Patient reports that he had a liver biopsy today. He is not restarted at on anticoagulation. His shortness of breath is improved his lower extremity swelling has improved. The patient had lost some weight over the last few months. He denies any constipation, denies bleeding. He is a heavy smoker. CEA at 13, AFp pending Past Med Surg Social Fam HX - Past Medical History Medical history: no medical history Psychiatric history: no psych history - Past Surgical History Surgical History: no surgical history - Social History Smoking Status: Current every day smoker Smokeless Tobacco Status: No Alcohol use: none Drug use: marijuana - Family History Mother History Unknown: Yes Living Status: Still Living Hx Family Endocrine Disorder: Yes (diabetes) Medications and Allergies No Known Home Drugs 05/08/17 [History] 3 Allergy/AdvReac Type Severity Reaction Status Date / Time lidocaine Allergy Agitated Verified 05/08/17 09:28 Review of systems: as in HPI Constitutional: Present: weakness Oncology - Exam - Constitutional Vitals: Temp Pulse Resp BP Pulse Ox 98.2 F 100 17 120/74 97 05/09/17 16:19 05/09/17 16:19 05/09/17 07:00 05/09/17 16:19 05/09/17 07:00 General appearance: thin - Head Head exam: Present: atraumatic, normal inspection - Eye Eye exam: Present: sclera anicteric - ENT ENT exam: Present: mucous membranes moist - Neck Neck exam: Present: full ROM - Respiratory Respiratory exam: Present: CTAB - Cardiovascular Cardiovascular exam: Present: +S1, +S2 - GI/Abdominal GI/Abdominal exam: Present: firm, normal bowel sounds, soft - Extremities Exam Extremities exam: Present: pedal edema - Neurological Exam Neurological exam: Present: alert, CN II-XII intact, oriented X3 - Psychiatric Psychiatric exam: Present: normal mood Oncology - Results Labs: Short CBC 05/09/17 Range/Units 05:08 WBC 17.8 H (4.3-11.1) K/mcL Hgb 8.3 L (12.9-16.9) g/dL Hct 26.9 L (37.5-50.1) % Plt Count 302 (140-400) K/mcL Neutrophils # 12.9 H (1.6-8.9) K/mcL BMP 05/09/17 05:08 Sodium 132 L Potassium 4.1 Chloride 102 Carbon Dioxide 24 BUN 18 Creatinine 0.77 Glucose 98 Calcium 8.1 L Cardiac Enzymes 05/08/17 05/09/17 Range/Units 20:26 05:08 Troponin I 0.01 0.00 (0-0.03) ng/mL Liver Function 05/09/17 Range/Units 05:08 Total Bilirubin 1.6 H (0.2-1.2) mg/dL AST 53 H (5-34) Units/L ALT 29 (0-55) Units/L Alkaline Phosphatase 537 H (38-126) Units/L Albumin 1.5 L (3.5-5.0) g/dL Consult Discharge Plan - Plan Referrals: Zaina Meade CNP [Primary Care Provider] - Larry Pineda [Family Provider] -
--- NOTE | 2017-05-09 18:44 | Internal Med Progress Note ---
Date of Encounter: 05/09/17 Time of Encounter: 18:42 - Assessment and plan (1) Bilateral pulmonary embolism Current Visit: Yes Status: Acute Assessment and plan: Patient is presently on heparin drip. (2) DVT, bilateral lower limbs Current Visit: Yes Status: Acute Assessment and plan: Likely secondary to metastatic malignancy. Qualifiers: Affected thrombotic vein of extremity: femoral Chronicity: acute Qualified Code(s): I82.413 - Acute embolism and thrombosis of femoral vein, bilateral (3) Hepatic metastases Current Visit: Yes Status: Acute Assessment and plan: Interventional radiology did a biopsy of the hepatic mass. Preliminary pathology report: Poorly differentiated carcinoma. Awaiting for final report. (4) DVT prophylaxis Current Visit: Yes Status: Acute Assessment and plan: Heparin - Subjective Interval history: Patient seen and examined. Chart reviewed. Patient is comfortably lying in the bed. Patient's daughter is at bedside. - Constitutional Vitals: Temp Pulse Resp BP Pulse Ox 98.2 F 100 17 120/74 97 05/09/17 16:19 05/09/17 16:19 05/09/17 07:00 05/09/17 16:19 05/09/17 07:00 General appearance: Present: A&O X 3, pleasant, no acute distress, answers questions appropriately - Head Head exam: Present: atraumatic, normocephalic - Eye Eye exam: Present: PERRL, conjuntiva pink, sclera anicteric Pupils: Present: PERRL - Neck Neck exam general surgery: Present: supple, trachea midline. Absent: lymphadenopathy - Respiratory Respiratory exam: Present: CTAB. Absent: accessory muscle use, rales, rhonchi, wheezes - Cardiovascular Cardiovascular exam: Present: RRR, +S1, +S2. Absent: diastolic murmur, gallop, rubs, systolic murmur - GI/Abdominal GI/Abdominal exam: Present: normal bowel sounds, soft, no peritoneal signs. Absent: distended, tenderness - Extremities Exam Extremities exam: Present: warm, radial pulses palpable and symmetrical. Absent : calf tenderness, cyanotic, pedal edema - Neurological Exam Neurological exam: Present: CN II-XII intact, oriented X3, no focal deficits. Absent: pronater drift, facial droop, speech deficit - Skin Skin exam: Present: dry, intact Internal Medicine: Result - Labs CBC & Chem 7: 05/09/17 05:08 05/09/17 05:08 Labs: Short CBC 05/09/17 Range/Units 05:08 WBC 17.8 H (4.3-11.1) K/mcL Hgb 8.3 L (12.9-16.9) g/dL Hct 26.9 L (37.5-50.1) % Plt Count 302 (140-400) K/mcL Neutrophils # 12.9 H (1.6-8.9) K/mcL BMP 05/09/17 05:08 Sodium 132 L Potassium 4.1 Chloride 102 Carbon Dioxide 24 BUN 18 Creatinine 0.77 Glucose 98 Calcium 8.1 L Cardiac Enzymes 05/08/17 05/09/17 Range/Units 20:26 05:08 Troponin I 0.01 0.00 (0-0.03) ng/mL Liver Function 05/09/17 Range/Units 05:08 Total Bilirubin 1.6 H (0.2-1.2) mg/dL AST 53 H (5-34) Units/L ALT 29 (0-55) Units/L Alkaline Phosphatase 537 H (38-126) Units/L Albumin 1.5 L (3.5-5.0) g/dL - ABG Interpretation ABG results: PT/INR, D-dimer PT 17.7 Seconds (9.4-12.1) H 05/08/17 10:14 - Impressions Impressions Liver Biopsy 05/09/17 00:00 IMPRESSION: Successful ultrasound guided core biopsy. D/ / 05/09/2017 14:56:15 Lily Jasso MD / [email or web address] Interpreting Provider: Lily Jasso MD Consult Discharge Plan - Plan Referrals: Zaina Meade CNP [Primary Care Provider] - Larry Pineda [Family Provider] -
[2017-05-09] MEDS: Acetaminophen 325 MG TABLET PO PRN (21:39)
[2017-05-10] MEDS: *HR* Heparin 5,000 UNIT/ML VIAL IVP PRN ×4 (00:27→23:08)
[2017-05-10] MEDS: Heparin 25,000 UNIT/500 ML D5W 25,000 UNIT/500 ML MLS IVC SCH ×2 (04:20→20:24)
--- NOTE | 2017-05-10 11:32 | Internal Med Progress Note ---
Date of Encounter: 05/10/17 Time of Encounter: 11:30 - Assessment and plan (1) Bilateral pulmonary embolism Current Visit: Yes Status: Acute Assessment and plan: Patient is presently on heparin drip. 05/10/2017. We will continue heparin drip for now. Patient may get colonoscopy on Friday. Once colonoscopy is done then we will switch him with low molecular weight heparin. The reason for bilateral pulmonary embolism is likely secondary to malignancy and patient will be going home on low molecular weight heparin. (2) DVT, bilateral lower limbs Current Visit: Yes Status: Acute Assessment and plan: Likely secondary to metastatic malignancy. Qualifiers: Affected thrombotic vein of extremity: femoral Chronicity: acute Qualified Code(s): I82.413 - Acute embolism and thrombosis of femoral vein, bilateral (3) Hepatic metastases Current Visit: Yes Status: Acute Assessment and plan: Interventional radiology did a biopsy of the hepatic mass. Preliminary pathology report: Poorly differentiated carcinoma. Awaiting for final report. (4) DVT prophylaxis Current Visit: Yes Status: Acute Assessment and plan: Heparin Medical decision making: This patient has a moderate to severe risk of worsening in spite of being on appropriate treatment due to underlying extensive metastatic malignancy. - Subjective Interval history: Patient seen and examined. Chart reviewed. Patient is comfortably lying in the bed. Patient denies any pain at this time. Patient denies nausea, vomiting, abdominal pain, diarrhea or dizziness. - Constitutional Vitals: Temp Pulse Resp BP Pulse Ox 98.6 F 96 18 104/67 97 05/10/17 11:26 05/10/17 11:26 05/10/17 11:26 05/10/17 11:26 05/10/17 11:26 General appearance: Present: A&O X 3, pleasant, no acute distress, answers questions appropriately - Head Head exam: Present: atraumatic, normocephalic - Eye Eye exam: Present: PERRL, conjuntiva pink, sclera anicteric Pupils: Present: PERRL - Neck Neck exam general surgery: Present: supple, trachea midline. Absent: lymphadenopathy - Respiratory Respiratory exam: Present: CTAB. Absent: accessory muscle use, rales, rhonchi, wheezes - Cardiovascular Cardiovascular exam: Present: RRR, +S1, +S2. Absent: diastolic murmur, gallop, rubs, systolic murmur - GI/Abdominal GI/Abdominal exam: Present: normal bowel sounds, soft, no peritoneal signs. Absent: distended, tenderness Additional comments: Large right-sided abdominal mass - Extremities Exam Extremities exam: Present: warm, radial pulses palpable and symmetrical. Absent : calf tenderness, cyanotic, pedal edema - Neurological Exam Neurological exam: Present: CN II-XII intact, oriented X3, no focal deficits. Absent: pronater drift, facial droop, speech deficit - Skin Skin exam: Present: dry, intact Internal Medicine: Result - Labs CBC & Chem 7: 05/09/17 05:08 05/09/17 05:08 - ABG Interpretation ABG results: PT/INR, D-dimer PT 17.7 Seconds (9.4-12.1) H 05/08/17 10:14 - Impressions Impressions Liver Biopsy 05/09/17 00:00 IMPRESSION: Successful ultrasound guided core biopsy. D/ / 05/09/2017 14:56:15 Lily Jasso MD / [facility] Interpreting Provider: Lily Jasso MD Consult Discharge Plan - Plan Referrals: Zaina Meade CNP [Primary Care Provider] - Larry Pineda [Family Provider] -
[2017-05-10 15:13] LABS: Basophils # 0.1 K/mcL (0.0-0.2); Basophils % 0.4 %; Eosinophils # 0.4 K/mcL (0.0-0.6); Eosinophils % 2.5 %; Hematocrit 28.1 % (37.5-50.1); Hemoglobin 8.7 g/dL (12.9-16.9); Immature Granulocytes % 1.2 % (0-4); Lymphocytes # 1.1 K/mcL (0.6-4.6); Mean Corpuscular Hemoglobin 23.2 pg (28.0-33.3); Mean Corpuscular Volume 74.9 fL (83.0-100.0); Monocytes % 12.3 %; Neutrophils # 12.2 K/mcL (1.6-8.9); Platelet Count 318 K/mcL (140-400); Red Blood Count 3.75 M/mcL (4.19-5.50); Red Cell Distribution Width 18.8 % (11.5-14.5); Segmented Neutrophils % 76.6 %
[2017-05-10 15:27] LABS: Alanine Aminotransferase 31 Units/L (0-55); Albumin/Globulin Ratio 0.3 (1.1-2.2); Alkaline Phosphatase 532 Units/L (38-126); Aspartate Amino Transferase 40 Units/L (5-34); BUN/Creatinine Ratio 23 (6-26); Bilirubin,Total 0.7 mg/dL (0.2-1.2); Blood Urea Nitrogen 18 mg/dL (8-26); Carbon Dioxide 27 mEq/L (19-29); Chloride 101 mEq/L (98-109); Globulin 5.3 g/dL (2.4-3.5); Glucose 128 mg/dL (70-99); Osmolality,Calculated 284 (280-300); Potassium 3.8 mEq/L (3.5-4.5); Sodium 135 mEq/L (136-145); Total Protein 6.8 g/dL (6.0-8.3); eGFR For African Americans > 60 (> 60); eGFR For Non-African Americans > 60 (> 60)
[2017-05-10 15:30] LABS: Albumin 1.5 g/dL (3.5-5.0)
[2017-05-10] MEDS: Acetaminophen 325 MG TABLET PO PRN (20:29)
[2017-05-11 07:21] LABS: Basophils # 0.1 K/mcL (0.0-0.2); Basophils % 0.6 %; Eosinophils # 0.5 K/mcL (0.0-0.6); Eosinophils % 3.7 %; Hematocrit 25.9 % (37.5-50.1); Hemoglobin 7.8 g/dL (12.9-16.9); Immature Granulocytes % 1.6 % (0-4); Lymphocytes # 1.2 K/mcL (0.6-4.6); Lymphocytes % 8.7 %; Mean Corpuscular HGB Conc 30.1 g/dL (31.6-35.5); Mean Corpuscular Hemoglobin 22.8 pg (28.0-33.3); Mean Corpuscular Volume 75.7 fL (83.0-100.0); Mean Platelet Volume 10.8 fL (9.4-12.4); Monocytes # 1.8 K/mcL (0.0-1.3); Monocytes % 12.7 %; Neutrophils # 10.1 K/mcL (1.6-8.9); Platelet Count 322 K/mcL (140-400); Red Blood Count 3.42 M/mcL (4.19-5.50); Red Cell Distribution Width 19.2 % (11.5-14.5); Segmented Neutrophils % 72.7 %
[2017-05-11 07:38] LABS: Alanine Aminotransferase 26 Units/L (0-55); Albumin/Globulin Ratio 0.3 (1.1-2.2); Alkaline Phosphatase 500 Units/L (38-126); Aspartate Amino Transferase 43 Units/L (5-34); BUN/Creatinine Ratio 24 (6-26); Blood Urea Nitrogen 16 mg/dL (8-26); Carbon Dioxide 25 mEq/L (19-29); Chloride 104 mEq/L (98-109); Globulin 5.1 g/dL (2.4-3.5); Glucose 126 mg/dL (70-99); Osmolality,Calculated 283 (280-300); Potassium 3.4 mEq/L (3.5-4.5); Sodium 135 mEq/L (136-145); Total Protein 6.5 g/dL (6.0-8.3); eGFR For African Americans > 60 (> 60); eGFR For Non-African Americans > 60 (> 60)
[2017-05-11 07:42] LABS: Albumin 1.4 g/dL (3.5-5.0); Bilirubin,Total 1.3 mg/dL (0.2-1.2)
--- NOTE | 2017-05-11 12:05 | Internal Med Progress Note ---
Date of Encounter: 05/11/17 Time of Encounter: 12:03 - Assessment and plan (1) Bilateral pulmonary embolism Current Visit: Yes Status: Acute Assessment and plan: Patient is presently on heparin drip. 05/10/2017. We will continue heparin drip for now. Patient may get colonoscopy on Friday. Once colonoscopy is done then we will switch him with low molecular weight heparin. The reason for bilateral pulmonary embolism is likely secondary to malignancy and patient will be going home on low molecular weight heparin. 05/11/2017 We will continue heparin drip for now. Patient is going to have a colonoscopy tomorrow. We will follow the protocol regarding heparin drip. We will try to discontinue heparin drip 4 hours before colonoscopy. (2) DVT, bilateral lower limbs Current Visit: Yes Status: Acute Assessment and plan: Likely secondary to metastatic malignancy. Qualifiers: Affected thrombotic vein of extremity: femoral Chronicity: acute Qualified Code(s): I82.413 - Acute embolism and thrombosis of femoral vein, bilateral (3) Hepatic metastases Current Visit: Yes Status: Acute Assessment and plan: Interventional radiology did a biopsy of the hepatic mass. Preliminary pathology report: Poorly differentiated carcinoma. Awaiting for final report. (4) DVT prophylaxis Current Visit: Yes Status: Acute Assessment and plan: Heparin Medical decision making: This patient has a moderate to severe risk of worsening in spite of being on appropriate treatment due to underlying extensive metastatic malignancy. - Subjective Interval history: Patient seen and examined. Chart reviewed. Patient is comfortably lying in the bed. Patient denies any pain at this time. Patient denies nausea, vomiting, abdominal pain, diarrhea or dizziness. 05/11/2017 Patient seen and examined. Chart reviewed. Patient's daughter is at bedside. Patient denies any pain at this time. Patient feels that he is getting a little better. Informed patient and his daughter who is the POA regarding provisional diagnosis of metastatic malignancy. Patient is firm to fight this scales with the cancer. - Constitutional Vitals: Temp Pulse Resp BP Pulse Ox 98.1 F 87 16 114/75 98 05/11/17 07:01 05/11/17 07:01 05/11/17 07:01 05/11/17 07:01 05/11/17 07:01 General appearance: Present: A&O X 3, pleasant, no acute distress, answers questions appropriately - Head Head exam: Present: atraumatic, normocephalic - Eye Eye exam: Present: PERRL, conjuntiva pink, sclera anicteric Pupils: Present: PERRL - Neck Neck exam general surgery: Present: supple, trachea midline. Absent: lymphadenopathy - Respiratory Respiratory exam: Present: CTAB. Absent: accessory muscle use, rales, rhonchi, wheezes - Cardiovascular Cardiovascular exam: Present: RRR, +S1, +S2. Absent: diastolic murmur, gallop, rubs, systolic murmur - GI/Abdominal GI/Abdominal exam: Present: normal bowel sounds, soft, no peritoneal signs. Absent: distended, tenderness - Extremities Exam Extremities exam: Present: warm, radial pulses palpable and symmetrical. Absent : calf tenderness, cyanotic, pedal edema - Neurological Exam Neurological exam: Present: CN II-XII intact, oriented X3, no focal deficits. Absent: pronater drift, facial droop, speech deficit - Skin Skin exam: Present: dry, intact Internal Medicine: Result - Labs CBC & Chem 7: 05/11/17 06:58 05/11/17 06:58 Labs: Short CBC 05/10/17 05/11/17 Range/Units 14:47 06:58 WBC 15.9 H 13.9 H (4.3-11.1) K/mcL Hgb 8.7 L 7.8 L (12.9-16.9) g/dL Hct 28.1 L 25.9 L (37.5-50.1) % Plt Count 318 322 (140-400) K/mcL Neutrophils # 12.2 H 10.1 H (1.6-8.9) K/mcL BMP 05/10/17 05/11/17 14:47 06:58 Sodium 135 L 135 L Potassium 3.8 3.4 L Chloride 101 104 Carbon Dioxide 27 25 BUN 18 16 Creatinine 0.77 0.68 L Glucose 128 H 126 H Calcium 8.0 L 8.0 L Liver Function 05/10/17 05/11/17 Range/Units 14:47 06:58 Total Bilirubin 0.7 1.3 H D (0.2-1.2) mg/dL AST 40 H 43 H (5-34) Units/L ALT 31 26 (0-55) Units/L Alkaline Phosphatase 532 H 500 H (38-126) Units/L Albumin 1.5 L 1.4 L (3.5-5.0) g/dL - ABG Interpretation ABG results: PT/INR, D-dimer PT 17.7 Seconds (9.4-12.1) H 05/08/17 10:14 Consult Discharge Plan - Plan Referrals: Zaina Meade CNP [Primary Care Provider] - Larry Pineda [Family Provider] -
[2017-05-11 13:46] LABS: Kappa Qnt Free Light Chains 8.41 mg/dL (0.33-1.94); Lambda Qnt Free Light Chains 8.25 mg/dL (0.57-2.63)
[2017-05-11] MEDS ORDERED: SODIUM CHLORIDE/NAHCO3/KCL/PEG 4,000 ML SOLN.RECON PO ONE (17:07)
[2017-05-11 18:46] LABS: Alpha 2 Globulin (PEP) 1.12 g/dL (0.48-1.05)
[2017-05-11] MEDS: Acetaminophen 325 MG TABLET PO PRN (19:42)
[2017-05-11] MEDS: Heparin 25,000 UNIT/500 ML D5W 25,000 UNIT/500 ML MLS IVC SCH (22:11)
[2017-05-12 03:27] LABS: Basophils # 0.1 K/mcL (0.0-0.2); Basophils % 0.7 %; Eosinophils # 0.5 K/mcL (0.0-0.6); Eosinophils % 3.5 %; Hemoglobin 8.2 g/dL (12.9-16.9); Immature Granulocytes % 1.4 % (0-4); Lymphocytes # 1.5 K/mcL (0.6-4.6); Lymphocytes % 9.9 %; Mean Corpuscular HGB Conc 30.4 g/dL (31.6-35.5); Mean Corpuscular Volume 75.8 fL (83.0-100.0); Mean Platelet Volume 10.4 fL (9.4-12.4); Monocytes # 1.8 K/mcL (0.0-1.3); Monocytes % 11.8 %; Neutrophils # 11.2 K/mcL (1.6-8.9); Platelet Count 326 K/mcL (140-400); Red Blood Count 3.56 M/mcL (4.19-5.50); Red Cell Distribution Width 19.3 % (11.5-14.5); Segmented Neutrophils % 72.7 %
[2017-05-12 03:44] LABS: Alanine Aminotransferase 26 Units/L (0-55); Albumin/Globulin Ratio 0.3 (1.1-2.2); Alkaline Phosphatase 514 Units/L (38-126); Aspartate Amino Transferase 38 Units/L (5-34); BUN/Creatinine Ratio 18 (6-26); Bilirubin,Total 1.6 mg/dL (0.2-1.2); Blood Urea Nitrogen 13 mg/dL (8-26); Calcium 8.3 mg/dL (8.6-10.8); Carbon Dioxide 25 mEq/L (19-29); Chloride 102 mEq/L (98-109); Globulin 5.3 g/dL (2.4-3.5); Glucose 99 mg/dL (70-99); Osmolality,Calculated 280 (280-300); Potassium 3.8 mEq/L (3.5-4.5); Sodium 135 mEq/L (136-145); Total Protein 6.7 g/dL (6.0-8.3); eGFR For African Americans > 60 (> 60); eGFR For Non-African Americans > 60 (> 60)
[2017-05-12 03:45] LABS: Albumin 1.4 g/dL (3.5-5.0)
[2017-05-12 07:48] LABS: IFE Reflexed IFE Done; Immunoglobulin A 551 mg/dL (68-408); Immunoglobulin G 2130 mg/dL (768-1632); Immunoglobulin M 201 mg/dL (35-263)
--- NOTE | 2017-05-12 12:12 | Anesthesia Evaluation PreOp ---
Date of Encounter: 05/12/17 Time of Encounter: 12:06 - Past History Planned Operation: EGD/Colonoscopy Cardiac History: Denies any Significant Hx Pulmonary History: Smoker, Other (Bilat. PE., Mason. DVT) APPLICATION PENETRATION TESTER History: Denies Any Significant HX Other Medical History: Hepatic (Hepatic metastis from possible colon CA) Anesthesia History: Past Anesthesia Alcohol Use: none Drug use: marijuana Medications and Allergies No Known Home Drugs 05/08/17 [History] 3 Allergy/AdvReac Type Severity Reaction Status Date / Time lidocaine Allergy Agitated Verified 05/08/17 09:28 - Meds/Allergy Pre-op Review Medications Reviewed: Yes Allergies Reviewed: Yes Beta Blockers on Current Med List: No Anesthesia Results - Labs 05/12/17 03:18 05/12/17 03:18 - Imaging EKG: image reviewed (SINUS TACHYCARDIA) Anesthesia Exam O2 Sat Weight 68.3 kg O2 Sat by Pulse Oximetry 96 O2 Sat by Pulse Oximetry 94 O2 Sat by Pulse Oximetry 95 O2 Sat by Pulse Oximetry 100 O2 Sat by Pulse Oximetry 96 O2 Sat by Pulse Oximetry 97 Vital Signs Temp Pulse Resp BP Pulse Ox 98.1 F 111 16 121/85 98 05/08/17 09:25 05/08/17 09:25 05/08/17 09:25 05/08/17 09:25 05/08/17 09:25 Vital Signs/O2 Sat, Most Current Temp Pulse Resp BP Pulse Ox 98.2 F 80 12 104/69 96 05/12/17 10:43 05/12/17 10:43 05/12/17 10:43 05/12/17 10:43 05/12/17 10:43 Height: 6' Weight: 150# NPO (# of Hours): > 8 hrs Pain Scale: 0 Pain Scale Used: Numeric (1 - 10) - HEENT Pupil (Motor): Pupils equal, EOMI Mallampati: II Teeth: Missing, Poor dentition Oral Opening: Greater than 3 - APPLICATION PENETRATION TESTER LOC: Oriented APPLICATION PENETRATION TESTER Motor: Normal RUE, Normal LUE, Normal RLE, Normal LLE, Normal Face APPLICATION PENETRATION TESTER Sensory: Normal: RUE, LUE, RLE, LLE, Face - Cardiac Rhythm: Regular Murmur: None JVD: No Carotid Bruit: No - Pulmonary Breath Sounds: bilateral Clear Respiratory Effort: Symmetrical Anesthesia Assess/Plan ASA Score: 3 Modified Madison Scale for Level of Consciousness: Cooperative, oriented, and tranquil Anesthetic Plan: MAC Autologous Blood: Yes Monitoring Plan: Standard Monitors Recovery Plan: Other
[2017-05-12] MEDS ORDERED: 0.9 % Sodium Chloride 500 ML IVC SCH (13:00)
[2017-05-12] MEDS ORDERED: *HR* Propofol 500 MG/50 ML BOTTLE IVC ONE (14:33)
--- NOTE | 2017-05-12 17:40 | Event Note ---
Date of Encounter: 05/12/17 Time of Encounter: 12:00 Prelim path is showing metastatic carcinoma (not small cell, not HCC) in the liver Final path should be available in a day or so, will update patient with results.
[2017-05-12] MEDS ORDERED: 0.9 % Sodium Chloride 1,000 ML IVC SCH (19:15)
--- NOTE | 2017-05-12 20:30 | Internal Med Progress Note ---
Date of Encounter: 05/12/17 Time of Encounter: 20:28 - Assessment and plan (1) Bilateral pulmonary embolism Current Visit: Yes Status: Acute Assessment and plan: Patient is presently on heparin drip. 05/10/2017. We will continue heparin drip for now. Patient may get colonoscopy on Friday. Once colonoscopy is done then we will switch him with low molecular weight heparin. The reason for bilateral pulmonary embolism is likely secondary to malignancy and patient will be going home on low molecular weight heparin. 05/11/2017 We will continue heparin drip for now. Patient is going to have a colonoscopy tomorrow. We will follow the protocol regarding heparin drip. We will try to discontinue heparin drip 4 hours before colonoscopy. 05/12/2017. Bilateral pulmonary embolism likely secondary to the metastatic malignancy. We will hold the heparin drip for colonoscopy. We will restart the heparin drip 4 hours after colonoscopy. Patient and family aware of above. (2) DVT, bilateral lower limbs Current Visit: Yes Status: Acute Assessment and plan: Likely secondary to metastatic malignancy. Qualifiers: Affected thrombotic vein of extremity: femoral Chronicity: acute Qualified Code(s): I82.413 - Acute embolism and thrombosis of femoral vein, bilateral (3) Hepatic metastases Current Visit: Yes Status: Acute Assessment and plan: Interventional radiology did a biopsy of the hepatic mass. Preliminary pathology report: Poorly differentiated carcinoma. Awaiting for final report. 05/12/2017. Colonoscopy: 6 mm polyp. EGD: Negative for any obvious mass. Oncology on the board. We will follow the recommendations. (4) DVT prophylaxis Current Visit: Yes Status: Acute Assessment and plan: Heparin Medical decision making: This patient has a moderate to severe risk of worsening in spite of being on appropriate treatment due to underlying extensive metastatic malignancy. - Subjective Interval history: Patient seen and examined. Chart reviewed. Patient is comfortably lying in the bed. Patient denies any pain at this time. Patient denies nausea, vomiting, abdominal pain, diarrhea or dizziness. 05/11/2017 Patient seen and examined. Chart reviewed. Patient's daughter is at bedside. Patient denies any pain at this time. Patient feels that he is getting a little better. Informed patient and his daughter who is the POA regarding provisional diagnosis of metastatic malignancy. Patient is firm to fight this scales with the cancer. 05/12/2017. Patient seen and examined. Chart reviewed. Patient's entire family is at bedside. Patient is little better as compared to yesterday. Patient denies chest pain, shortness of breath, nausea, vomiting, abdominal pain or diarrhea. Informed patient that he will be going for a colonoscopy/EGD today. - Constitutional Vitals: Temp Pulse Resp BP Pulse Ox 98.6 F 80 18 113/81 98 05/12/17 15:52 05/12/17 15:52 05/12/17 17:18 05/12/17 17:18 05/12/17 17:18 General appearance: Present: A&O X 3, pleasant, no acute distress, answers questions appropriately - Head Head exam: Present: atraumatic, normocephalic - Eye Eye exam: Present: PERRL, conjuntiva pink, sclera anicteric Pupils: Present: PERRL - Neck Neck exam general surgery: Present: supple, trachea midline. Absent: lymphadenopathy - Respiratory Respiratory exam: Present: CTAB. Absent: accessory muscle use, rales, rhonchi, wheezes - Cardiovascular Cardiovascular exam: Present: RRR, +S1, +S2. Absent: diastolic murmur, gallop, rubs, systolic murmur - GI/Abdominal GI/Abdominal exam: Present: normal bowel sounds, soft, no peritoneal signs. Absent: distended, tenderness - Extremities Exam Extremities exam: Present: warm, radial pulses palpable and symmetrical. Absent : calf tenderness, cyanotic, pedal edema - Neurological Exam Neurological exam: Present: CN II-XII intact, oriented X3, no focal deficits. Absent: pronater drift, facial droop, speech deficit - Skin Skin exam: Present: dry, intact Internal Medicine: Result - Labs CBC & Chem 7: 05/12/17 03:18 05/12/17 03:18 Labs: Short CBC 05/12/17 Range/Units 03:18 WBC 15.4 H (4.3-11.1) K/mcL Hgb 8.2 L (12.9-16.9) g/dL Hct 27.0 L (37.5-50.1) % Plt Count 326 (140-400) K/mcL Neutrophils # 11.2 H (1.6-8.9) K/mcL BMP 05/12/17 03:18 Sodium 135 L Potassium 3.8 Chloride 102 Carbon Dioxide 25 BUN 13 Creatinine 0.71 L Glucose 99 Calcium 8.3 L Liver Function 05/12/17 Range/Units 03:18 Total Bilirubin 1.6 H (0.2-1.2) mg/dL AST 38 H (5-34) Units/L ALT 26 (0-55) Units/L Alkaline Phosphatase 514 H (38-126) Units/L Albumin 1.4 L (3.5-5.0) g/dL - ABG Interpretation ABG results: PT/INR, D-dimer PT 17.7 Seconds (9.4-12.1) H 05/08/17 10:14 Consult Discharge Plan - Plan Referrals: Moy Morales MD [Partnered Physician] - 05/19/17 3:00 pm Zaina Meade CNP [Primary Care Provider] -
[2017-05-12] MEDS ORDERED: Artificial Tears SOLN 15 ML BOTTLE BOTH EYES PRN (21:17)
[2017-05-13] MEDS: Heparin 25,000 UNIT/500 ML D5W 25,000 UNIT/500 ML MLS IVC SCH (03:32)
--- NOTE | 2017-05-13 10:44 | Internal Med Progress Note ---
<Brittanie Sam - Last Filed: 05/13/17 17:12> Date of Encounter: 05/13/17 Time of Encounter: 10:42 - Assessment and plan (1) Bilateral pulmonary embolism Current Visit: Yes Status: Acute Assessment and plan: Bilateral pulmonary embolism likely secondary to the metastatic malignancy. Patient is presently on heparin drip. (2) DVT, bilateral lower limbs Current Visit: Yes Status: Acute Assessment and plan: Likely secondary to metastatic malignancy. Qualifiers: Affected thrombotic vein of extremity: femoral Chronicity: acute Qualified Code(s): I82.413 - Acute embolism and thrombosis of femoral vein, bilateral (3) Hepatic metastases Current Visit: Yes Status: Acute Assessment and plan: Interventional radiology did a biopsy of the hepatic mass. Preliminary pathology report: Poorly differentiated carcinoma. Awaiting for final report. 05/12/2017. Colonoscopy: 6 mm polyp. EGD: Negative for any obvious mass. Oncology on the board. We will follow the recommendations. - Subjective Interval history: Patient states he feels better after taking a bath and getting his hair washed. Denies shortness of breath, chest pain. - Constitutional Vitals: Temp Pulse Resp BP Pulse Ox 98.1 F 96 14 110/68 92 05/13/17 06:38 05/13/17 06:38 05/13/17 06:38 05/13/17 06:38 05/13/17 06:38 General appearance: Present: A&O X 3, pleasant, no acute distress, answers questions appropriately - Head Head exam: Present: atraumatic, normocephalic - Eye Eye exam: Present: PERRL, conjuntiva pink, sclera anicteric Pupils: Present: PERRL - Neck Neck exam general surgery: Present: supple, trachea midline - Respiratory Respiratory exam: Present: CTAB. Absent: accessory muscle use, rales, rhonchi, wheezes - Cardiovascular Cardiovascular exam: Present: RRR, +S1, +S2. Absent: diastolic murmur, gallop, rubs, systolic murmur - GI/Abdominal GI/Abdominal exam: Present: hepatomegaly, normal bowel sounds, soft. Absent: tenderness - Extremities Exam Extremities exam: Present: pedal edema (1+ pitting) - Neurological Exam Neurological exam: Present: alert, oriented X3. Absent: facial droop, speech deficit - Skin Skin exam: Present: dry, intact, warm Internal Medicine: Result - Labs CBC & Chem 7: 05/12/17 03:18 05/12/17 03:18 - ABG Interpretation ABG results: PT/INR, D-dimer PT 17.7 Seconds (9.4-12.1) H 05/08/17 10:14 Consult Discharge Plan - Plan Referrals: Moy Morales MD [Partnered Physician] - 05/19/17 3:00 pm Zaina Meade CNP [Primary Care Provider] - 05/20/17 10:15 am <Eder Partida - Last Filed: 05/13/17 18:35> Date of Encounter: 05/13/17 - Assessment and plan (1) Acute bilateral deep vein thrombosis (DVT) of femoral veins Current Visit: Yes Status: Acute (2) Acute bilateral deep vein thrombosis (DVT) of iliac veins of lower extremities Current Visit: Yes Status: Acute (3) Bilateral pulmonary embolism Current Visit: Yes Status: Acute (4) Hepatic metastases Current Visit: Yes Status: Acute - Constitutional Vitals: Temp Pulse Resp BP Pulse Ox 98.3 F 96 14 133/83 95 05/13/17 15:24 05/13/17 15:24 05/13/17 15:24 05/13/17 15:24 05/13/17 15:24 Internal Medicine: Result - Labs CBC & Chem 7: 05/12/17 03:18 05/12/17 03:18 - ABG Interpretation ABG results: PT/INR, D-dimer PT 17.7 Seconds (9.4-12.1) H 05/08/17 10:14 - Attending Attestation I examined this patient and my medical decision-making was reviewed with the Resident Physician on 05/13/17. I agree with the documented findings, disposition and treatment plan as described except to the extent set forth below. Mr. Nunn has been admitted for acute bilateral DVTs and PE. He has adenocarcinoma in his liver, most likely metastatic. He remains moderate to high risk due to potential for worsening respiratory status. Mr. Nunn feels OK. Has had some anxiety. Awaiting decision regarding which anticoagulation and any other plans. No fever or chills. No new symptoms today. Exam Alert. Comfortable Heart tachy - regular Lungs diminished Edema present I/P 1. Bilateral DVTs 2. PE 3. Metastatic adenocarcinoma Further diagnoses and plan as above. Anticipate d/c after further onc rec.
[2017-05-13] MEDS ORDERED: *HR* LORazepam 1 MG TABLET PO ONE (16:03)
[2017-05-13] MEDS ORDERED: *HR* Metoprolol 5 MG/5 ML VIAL IVP ONE (20:52)
[2017-05-14] MEDS: Heparin 25,000 UNIT/500 ML D5W 25,000 UNIT/500 ML MLS IVC SCH (04:27)
--- NOTE | 2017-05-14 09:16 | Discharge Summary ---
<Brittanie Sam - Last Filed: 05/14/17 09:32> Date of Encounter: 05/14/17 Time of Encounter: 09:12 - Discharge Diagnosis (1) Bilateral pulmonary embolism Priority: Primary Status: Acute (2) DVT, bilateral lower limbs Priority: Primary Status: Acute Qualifiers: Affected thrombotic vein of extremity: femoral Chronicity: acute Qualified Code(s): I82.413 - Acute embolism and thrombosis of femoral vein, bilateral (3) Hepatic metastases Priority: Primary Status: Acute - Discharge Medications Prescriptions: Artificial Tears SOLN [Akwa Tears] 1 drop BOTH EYES QID PRN #1 bottle PRN Reason: Dry Eyes LORazepam [Ativan] 1 mg PO BID PRN #60 tablet PRN Reason: Anxiety Omeprazole [PriLOSEC] 20 mg PO DAILY #30 cap Rivaroxaban [Xarelto] 1 dose PO AD 30 Days pack Home Medications: Artificial Tears SOLN [Akwa Tears] 1 drop BOTH EYES QID PRN #1 bottle 05/14/17 [ Rx] LORazepam [Ativan] 1 mg PO BID PRN #60 tablet 05/14/17 [Rx] Omeprazole [PriLOSEC] 20 mg PO DAILY #30 cap 05/14/17 [Rx] Rivaroxaban [Xarelto] 1 dose PO AD 30 Days pack 05/14/17 [Rx] Allergies/Adverse Reactions: 3 Allergy/AdvReac Type Severity Reaction Status Date / Time lidocaine Allergy Agitated Verified 05/08/17 09:28 Procedures/tests Complete & Pending: Procedures Performed prior 72 hours Category Date Time Status ECG 12 lead ECG [ECG] Routine Y 05/13/17 20:38 Completed Date of admission: 05/08/17 17:40 Primary care physician: Zaina Meade Consults: 05/09/17 09:12 Consult to Interventional Radiology [CONS] Routine Consulting Provider: Radiology Interventional Cols Reason for Consult: Liver mass biopsy Call Completed: Yes 05/09/17 11:13 Consult to Gastroenterology [CONS] Routine Consulting Provider: Gastroenterology Nicky Reason for Consult: liver mass Call Completed: Yes Discharging clinician: Brittanie Sam Anticipated date of discharge: 05/14/17 - Patient Status Disposition: Home, Self-Care Condition: Serious Functional capacity at discharge: independent ambulation Overall status at discharge: patient is not back to baseline - Discharge Instructions Instructions: Lorazepam (By mouth), Omeprazole (By mouth), Eye Lubricant (Into the eye), Rivaroxaban (By mouth), Pulmonary Embolism (DC), Deep Venous Thrombosis (DC), Liver Cancer (DC), Liver Cancer (GEN), Liver Cancer, Heel Finisher (GEN) Follow Up With: Moy Morales MD [Partnered Physician] - 05/19/17 3:00 pm Zaina Meade CNP [Primary Care Provider] - 05/20/17 10:15 am Forms: ED Satisfaction Letter - Diet and Activity Diet: regular diet Interval History: Denies chest pain, shortness of breath. Ready for discharge. Hospital course: Mr. Nunn is a 52 year old male who presented to the ER with a 1 week history of increasing bilateral lower extremity swelling. He was found to have bilateral DVT, bilateral PE, and an extensive hepatic mass >9 cm and multiple smaller nodules. He was started on heparin drip for his PE/DVT and he underwent liver biopsy. Gi was consulted and he had EGD and colonoscopy. EGD showed esophageal ulcer, LA grade B reflux esophagitis, and gastritis. Colonoscopy showed 1 rectal polyp and 1 sigmoid polyp - both were removed, and diverticulosis of the sigmoid colon. 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 It is not clear if it is primary or metastatic, but more likely metastatic given the multiple tumor masses; however, did not specific stains for primary sites, such as lung, prostate, and GI tract are negative. He is being discharged home with xarelto starter pack, ativan prn for anxiety, and prilosec for gastritis. He will follow-up outpatient with oncology and primary care. - Time Spent with Patient Total time spent providing and/or coordinating discharge services: - Constitutional Vitals: Temp Pulse Resp BP Pulse Ox 97.9 F 99 18 110/72 96 05/14/17 07:54 05/14/17 07:54 05/14/17 07:54 05/14/17 07:54 05/14/17 07:54 General appearance: Present: A&O X 3, pleasant, no acute distress, answers questions appropriately - Head Head exam: Present: atraumatic, normocephalic - Eye Eye exam: Present: PERRL, conjuntiva pink, sclera anicteric Pupils: Present: PERRL - Neck Neck exam general surgery: Present: supple, trachea midline. Absent: lymphadenopathy - Respiratory Respiratory exam: Present: CTAB. Absent: accessory muscle use, rales, rhonchi, wheezes - Cardiovascular Cardiovascular exam: Present: RRR, +S1, +S2. Absent: diastolic murmur, gallop, rubs, systolic murmur - GI/Abdominal GI/Abdominal exam: Present: hepatomegaly, normal bowel sounds, soft. Absent: tenderness - Extremities Exam Extremities exam: Present: pedal edema (1+ pitting), warm - Neurological Exam Neurological exam: Present: CN II-XII intact, oriented X3, no focal deficits. Absent: pronater drift, facial droop, speech deficit - Skin Skin exam: Present: dry, intact, warm <Eder Partida - Last Filed: 05/14/17 16:29> Date of Encounter: 05/14/17 - Discharge Diagnosis (1) Acute bilateral deep vein thrombosis (DVT) of femoral veins Priority: Primary Status: Acute (2) Acute bilateral deep vein thrombosis (DVT) of iliac veins of lower extremities Priority: Primary Status: Acute (3) Bilateral pulmonary embolism Status: Acute (4) Hepatic metastases Priority: Secondary Status: Acute (5) Tobacco abuse Priority: Secondary Status: Chronic Procedures/tests Complete & Pending: Procedures Performed prior 72 hours Category Date Time Status ECG 12 lead ECG [ECG] Routine Y 05/13/17 20:38 Completed Date of admission: 05/08/17 17:40 Primary care physician: Zaina Meade Consults: 05/09/17 09:12 Consult to Interventional Radiology [CONS] Routine Consulting Provider: Radiology Interventional Cols Reason for Consult: Liver mass biopsy Call Completed: Yes 05/09/17 11:13 Consult to Gastroenterology [CONS] Routine Consulting Provider: Gastroenterology Nicky Reason for Consult: liver mass Call Completed: Yes Hospital course: Mr. Nunn is a 52 year old male - Time Spent with Patient Total time spent providing and/or coordinating discharge services:38min - Constitutional Vitals: Temp Pulse Resp BP Pulse Ox 97.6 F 107 18 120/76 98 05/14/17 11:11 05/14/17 11:11 05/14/17 11:11 05/14/17 11:11 10/18/17 11:11 - Attending Attestation / I examined this patient and my medical decision-making was reviewed with the Resident Physician on 05/14/17. I agree with the documented findings, disposition and/ treatment plan as described except to the extent set forth below. Mr. Nunn has been admitted for acute bilateral DVTs and PEs. He was noted to have liver lesions that are biopsy positive for adenocarcinoma. GI work up negative thus far. He is now afebrile. He is slightly tachycardic at times but overall improved. He will be started on PO Xarelto and discharged home today. Exam Alert. Comfortable Heart reg and slightly tachy Lungs diminished Abd soft. Plan D/C home today on Xarelto and follow with oncology. Refused flu vaccine
[2017-05-14] MEDS ORDERED: *HR* Rivaroxaban 15 MG TABLET PO SCH (09:45)
[2017-05-14 11:15] VITALS: BP 120/76
== END 2017-05-14 14:34 | disposition home or self-care (01) | DRG 435 ==
LOC: 2NENU 09:23 → EMEROO 09:23 → 2NENU 14:12 → SUATTDRO 17:40
PROVIDERS: ADMIT Internal Medicine; ATTEND Internal Medicine
PROC: IRLIVER (2017-05-09 13:15)

== ENCOUNTER 2017-05-29 09:50 | Inpatient (IN) ==
--- NOTE | 2017-05-29 10:22 | Emergency Department Note ---
Disposition Clinical Impression: Lactic acidosis, Thrombocytopenia, Dehydration Leukocytosis Qualifiers: Leukocytosis type: unspecified Qualified Code(s): D72.829 - Elevated white blood cell count, unspecified Disposition: Admitted As Inpatient Condition: Serious Referrals: Zaina Meade CNP [Primary Care Provider] - Larry Pineda [Family Provider] - Forms: ED Satisfaction Letter, Work/School Release Time of Disposition: 11:31 General Adult HPI - General Chief complaint: ED General Medical Stated complaint: Dehydration, sent from cancer center Time Seen by Provider: 05/29/17 09:58 Source: patient Limitations: no limitations - History of Present Illness HPI Narrative: Patient presents from PCP for concern of low platelets. Patient was diagnosed via CT with potential cancer 2 weeks ago and was diagnosed this AM before arrival with pancreatic cancer with metastasis to the common bile duct and liver. Patient was also diagnosed with bilateral lower extremity DVTs and pulmonary embolism 2 weeks ago. Patient was started on xarelto for his DVTs. Patient had labs drawn today and it was found that his platelet levels were 9, 000. Patient was sent to the ED for his low platelet levels and dehydration. Laboratory studies also noted leukocytosis. Patient at this time states that his only a little more short of breath than normal. Patient states that he has no worsening or chest pain, abdominal pain, nausea, vomiting, fevers or chills. Patient states that he feel about as well as he has over the past 2 weeks. Pt Subjective Complaint: Low platelet levels Onset (ago): Just [employer] Pain Scale: 0 Associated symptoms: Reports: denies other symptoms - Related Data Home Medications Medication Instructions Recorded Confirmed Rivaroxaban [Xarelto] 15 mg PO BID 05/29/17 05/29/17 Previous Rx's Medication Instructions Recorded LORazepam [Ativan] 1 mg PO BID PRN #60 tablet 05/14/17 Omeprazole [PriLOSEC] 20 mg PO DAILY #30 cap 05/14/17 Allergies Allergy/AdvReac Type Severity Reaction Status Date / Time lidocaine Allergy Agitated Verified 05/29/17 08:22 All systems ED: reviewed and negative except as stated. Review of Systems: As Per HPI Constitutional: Reports: as per HPI, weakness, weight change Eyes: Reports: as per HPI. Denies: eye pain, eye discharge Cardiovascular: Reports: as per HPI. Denies: chest pain, palpitations Respiratory: Reports: as per HPI, dyspnea. Denies: cough Gastrointestinal: Reports: as per HPI, diarrhea. Denies: abdominal pain, nausea , vomiting, constipation Genitourinary: Reports: as per HPI. Denies: urgency, dysuria Past Medical History - Past Medical History Medical history: Reports: cancer Surgical history: Reports: no surgical history Psychiatric history: Reports: no psych history - Social History Smoking Status: Current every day smoker Smokeless Tobacco Status: No Alcohol use: Reports: none Drug use: Reports: marijuana Physical Exam - General Limitations: no limitations General appearance: alert, in no apparent distress - Head Head exam: atraumatic, normocephalic - Eye Eye exam: Present: PERRL, EOMI, scleral icterus - ENT ENT exam: normal exam, normal oropharynx, mucous membranes moist - Neck Neck exam: Present: normal inspection, full ROM - Chest Chest inspection: Present: normal inspection, symmetric chest wall rise. Absent : tenderness, rash - Respiratory Respiratory exam: Present: normal lung sounds bilaterally - Cardiovascular Cardiovascular exam: Present: normal rhythm, tachycardia, normal heart sounds - Abdominal Exam Abdominal exam: Present: soft, Non-Tender - Neurological Exam Neurological exam: Present: alert, oriented X3 - Skin Skin exam: Present: warm, dry, intact. Absent: normal color (patient is visably jaundiced) Course - Reevaluation(s) Reevaluation #1: Platelet count 9. Will transfuse. Magnesium replaced. Lactic acid high. White count high. We will start him on antibiotics and blood cultures sent. Patient admitted to medicine. - Consultations Consultation #1: Dr. Wilson accepts Time: 11:30 Vital Signs Temperature 97.4 F L 05/29/17 09:53 Pulse Rate 130 05/29/17 09:53 Respiratory Rate 26 05/29/17 09:53 Blood Pressure 124/77 05/29/17 09:53 O2 Sat by Pulse Oximetry 98 05/29/17 09:53 Temperature 97.4 F L 05/29/17 09:53 Pulse Rate 130 05/29/17 09:53 Respiratory Rate 26 05/29/17 09:53 Blood Pressure 124/77 05/29/17 09:53 O2 Sat by Pulse Oximetry 98 05/29/17 09:53 Oxygen Delivery Oxygen Delivery Room Air Medical Decision Making - Lab Data Lab results reviewed: Yes I reviewed the patient's lab results. Lab Results 05/29/17 05/29/17 05/29/17 Range/Units 10:51 10:51 10:51 PT 64.0 H* (9.4-12.1) Seconds INR 5.7 H* APTT 36.3 H (26.0-36.0) Seconds Lactic Acid 3.2 H (0.5-2.2) mmol/L Phosphorus 3.6 (2.3-4.7) mg/dL Magnesium 1.4 L (1.6-2.6) mg/dL - EKG Data EKG #1 EKG results narrative: Sinus tach at 120. Normal ST segments. Normal intervals. Normal axis. Critical Care Time Critical Care Time: Yes Total Critical Care Time: 40 Attestation: Critical care performed: Time is exclusive of separately billable procedures. Time includes: direct patient care, patient reassessment, coordination of patient care, interpretation of data (laboratory data, radiology data, and respiratory data), review of patient's medical records, medical consultation and documentation of patient care. Procedures included in critical care time: Procedures excluded from critical care time:
[2017-05-29] MEDS: 0.9 % Sodium Chloride 1,000 ML IVC SCH ×3 (10:28→17:31)
[2017-05-29 11:09] LABS: Activated Partial Thrombo Time 36.3 Seconds (26.0-36.0)
[2017-05-29 11:12] LABS: Magnesium 1.4 mg/dL (1.6-2.6); Phosphorous 3.6 mg/dL (2.3-4.7)
[2017-05-29 11:14] LABS: INR 5.7
[2017-05-29] MEDS ORDERED: Piperacillin/Tazobactam 3.375 GM in D5% in Water (Mini-Bag+) 100 ML IVPB ONE ×2 (11:14→11:30)
[2017-05-29] MEDS ORDERED: Vancomycin 1,000 MG in D5% in Water 250 ML IVPB ONE (11:22)
[2017-05-29] MEDS ORDERED: Magnesium Oxide 400 MG TABLET PO STA (11:22)
[2017-05-29] MEDS ORDERED: 0.9 % Sodium Chloride 1,000 ML IVC ONE (11:36)
--- NOTE | 2017-05-29 12:25 | Event Note ---
Date of Encounter: 05/29/17 Time of Encounter: 12:23 Patient seen and examined with nurse practitioner. Patient mentioned that it was confirmed that pancreatic cancer was the primary for his metastatic disease. Placenta the emergency room after he was found to have a platelet count of 9000 by his oncologist. Etiology unclear but may be related to Xarelto which was started for the [place] thromboembolism. IRS 5.4. Will hold Xarelto. Will discuss with oncology regarding administering platelets given recent diagnosis of pulmonary embolism. As concern for pneumonia on chest x- ray. We will start patient on vancomycin Zosyn. Hydrate. Patient is full code.
[2017-05-29] MEDS ORDERED: *HR* LORazepam 1 MG TABLET PO PRN (12:54)
[2017-05-29] MEDS ORDERED: Naloxone 0.4 MG/ML INJ IVP PRN (12:54)
--- NOTE | 2017-05-29 13:07 | Internal Med History&Physical ---
Date of Encounter: 05/29/17 Time of Encounter: 13:01 Assessment and Plan (1) Sepsis Current visit: Yes Status: Acute Presents today with leukocytosis, elevated lactic acid 3.2, tachycardia, from cytopenia and interstitial pneumonitis. Recent diagnosis of pancreatic cancer and is immunocompromised. Stat blood cultures UA Repeat lactic acid Vancomycin with pharmacy dose and Zosyn Aggressive rehydration, 2 L fluid bolus, 0.9% normal saline at 125 ml/hr CBC, CMP, MG, PHOS, in the morning Qualifiers: Sepsis type: sepsis due to unspecified organism Qualified Code(s): A41.9 - Sepsis, unspecified organism (2) Pneumonitis Current visit: Yes Status: Acute New shortness of breath with nonproductive cough. Appears septic upon presentation to ED. Leukocytosis 20.4. Chest x-ray reveals suspected interstitial pneumonitis. Continue broad-spectrum antibiotic coverage (3) Diarrhea Current visit: Yes Status: Acute Diarrhea for approximately 2 weeks, continues to have daily episodes of loose watery stool. Denies any recent antibiotic use. We will check for C. difficile Qualifiers: Diarrhea type: unspecified type Qualified Code(s): R19.7 - Diarrhea, unspecified (4) Dehydration Current visit: Yes Status: Acute Reports poor oral intake, and diarrhea for the last 2 weeks. Aggressive rehydration with 2 L fluid bolus, started 0.9% normal saline at 125 ml/hr (5) Pancreatic cancer metastasized to liver Current visit: Yes Status: Acute New diagnosis of pancreatic cancer with liver metastasis. Although it is unknown at this time whether or not pancreas as a primary site. Presents today with leukocytosis and thrombus cytopenia with elevated PT/INR of 64/5.7. He is not undergoing chemotherapy at this time. Oncology on board and treatment plan in place. Consult to oncology-Dr. Wilson called and will see while inpatient (6) Leukocytosis Current visit: Yes Status: Acute The diagnosis of cancer and pancreas, common bile duct and liver, immunocompromised. Septic today upon presentation to ED with a diagnosis of pneumonitis. See plan above Qualifiers: Leukocytosis type: unspecified Qualified Code(s): D72.829 - Elevated white blood cell count, unspecified (7) Thrombocytopenia Current visit: Yes Status: Acute Platelet count 9000, with unknown etiology, was recently started on xarelto for BLE DVT'S, & PE. Xarelto may be the cause for thrombocytopenia. Hold Xarelto Transfuse platelets CBC in 4 hours (8) Hypomagnesemia Current visit: Yes Status: Acute Recheck Mg in the morning (9) Hypoalbuminemia due to protein-calorie malnutrition Current visit: Yes Status: Acute Chest the decrease in appetite over the last couple of months with 30 pounds or greater weight loss. Changes in taste and no longer wants to eat. Consult dietary for supplementation Internal Medicine - H&P: HPI Chief complaint: Leukocytosis, thrombocytopenia, pancreatic cancer, pneumonitis Admitted From: Home Plans for Post Hospital Care: Home History of present illness: Mr. Nunn is a 52 year old male with Past medical history of a recent diagnosis of pancreas cancer. He presents to [facility] today from oncology with leukocytosis and thrombocytopenia. Patient reports profound weakness, fatigue, functional decline, weight loss which began a few months ago. Workup from primary care provider revealed DVTs and PE. Additional testing revealed probable cancer. He has an oncologist today for an overview of biopsy results. Patient was informed he has pancreas cancer with metastasis to CBD and liver. Lab work completed at the office revealed anemia, osteopenia and leukocytosis. He was sent to ED for hospital admission. Denies any fever, chills, nausea, vomiting, hematemesis, hematochezia, melena. Admits to a new nonproductive cough, shortness of breath with activity, diffuse abdominal pain, new ascites, appetite changes and profound weakness. The patient was found to be septic. Past Med Surg Social Fam HX - Past Medical History Medical history: cancer Psychiatric history: no psych history - Past Surgical History Surgical History: no surgical history - Social History Smoking Status: Current every day smoker Smokeless Tobacco Status: No Alcohol use: none Drug use: marijuana - Family History Mother Living Status: Still Living Hx Family Endocrine Disorder: Yes (diabetes) Internal Medicine - H&P: Meds LORazepam [Ativan] 1 mg PO BID PRN #60 tablet 05/14/17 [Rx] Omeprazole [PriLOSEC] 20 mg PO DAILY #30 cap 05/14/17 [Rx] Rivaroxaban [Xarelto] 15 mg PO BID 05/29/17 [History] 3 Allergy/AdvReac Type Severity Reaction Status Date / Time lidocaine Allergy Agitated Verified 05/29/17 08:22 All Systems PM: A 10-system review of systems was performed and is negative for pertinent findings except as documented above in the HPI. - Constitutional Constitutional: anorexia, fatigue, lethargy, malaise, weakness, weight loss, no chills, no fever(s), no falls - EENT Eyes: no change in vision, no discharge, no pain, no photophobia Nose, mouth and throat: no bleeding gums, no epistaxis - Cardiovascular Cardiovascular ROS IM: dyspnea on exertion, edema (BLE), no chest pain, no diaphoresis, no dyspnea, no lightheadedness, no palpitations, no syncope - Respiratory Respiratory: cough (Non-Productive), hemoptysis (Reporting one episode of a small amount of hemoptysis), dyspnea on exertion, no wheezing, no pain on inspiration, no chest congestion, no change in phlegm color, no pain with cough - Gastrointestinal Gastrointestinal: early satiety, no abdominal pain, no coffee ground emesis, no constipation, no diarrhea, no hematemesis, no hematochezia, no melena, no nausea , no vomiting - Genitourinary Genitourinary ROS male: no difficulty urinating, no dysuria, no flank pain - Musculoskeletal Musculoskeletal ROS IM: no numbness, no tingling - Integumentary Integumentary IM: no rash, no unusual bruising - Neurological Neurological ROS: no confusion, no convulsions, no focal weakness, no numbness, no tingling, no tremor(s) - Constitutional Vitals: Temp Pulse Resp BP Pulse Ox 97.4 F L 111 18 130/87 98 05/29/17 09:53 05/29/17 12:48 05/29/17 12:48 05/29/17 12:48 05/29/17 12:48 General appearance: Present: cachectic, A&O X 3, underweight, answers questions appropriately Exam: Unfortunately, unhealthy-appearing gentleman severely cachectic. Profoundly weak on examination. - Head Head exam: Present: atraumatic, normocephalic - Eye Eye exam: Present: PERRL, scleral icterus. Absent: periorbital swelling, periorbital tenderness Pupils: Present: PERRL - Neck Neck exam general surgery: Present: supple, trachea midline. Absent: lymphadenopathy, tenderness, thyromegaly - Respiratory Respiratory exam: Present: CTAB, tachypnea. Absent: accessory muscle use, rales , rhonchi, wheezes - Cardiovascular Cardiovascular exam: Present: RRR, +S1, +S2, tachycardia. Absent: diastolic murmur, gallop, rubs, systolic murmur - GI/Abdominal GI/Abdominal exam: Present: normal bowel sounds, soft, no peritoneal signs. Absent: distended, tenderness - Extremities Exam Extremities exam: Present: normal capillary refill, pedal edema (Bilateral lower extremities), radial pulses palpable and symmetrical. Absent: calf tenderness, joint swelling, mottling, tenderness, warm - Neurological Exam Neurological exam: Present: alert, oriented X3. Absent: speech deficit - Skin Skin exam: Present: dry, intact. Absent: petechiae (No petechial hemorrhaging noted) Internal Med - H&P Results - Diagnostic Studies Chest x-ray Status: image reviewed by me Additional comments: Suspected pneumonitis - VTE Reasons for not Prescribing Prophylaxis: Medical contraindication
[2017-05-29 14:32] LABS: Hematocrit 26.9 % (37.5-50.1); Hemoglobin 8.1 g/dL (12.9-16.9); Immature Platelets 23.2 % (1.1-6.1); Mean Corpuscular HGB Conc 30.1 g/dL (31.6-35.5); Mean Corpuscular Hemoglobin 24.8 pg (28.0-33.3); Mean Corpuscular Volume 82.3 fL (83.0-100.0); Monocytes # 1.8 K/mcL (0.0-1.3); Red Blood Count 3.27 M/mcL (4.19-5.50); Red Cell Distribution Width 25.8 % (11.5-14.5)
[2017-05-29 14:49] LABS: Platelet Count 17 K/mcL (140-400)
[2017-05-29 16:20] LABS: Lymphocytes # 1.1 K/mcL (0.6-4.6)
[2017-05-29 16:21] LABS: Anisocytosis 3+ (Not Present); Platelet Estimate Marked Decrease (Normal)
[2017-05-29 16:24] LABS: Polychromasia 1+ (Not Present)
[2017-05-29] MEDS ORDERED: 0.9 % Sodium Chloride 250 ML ONE (18:32)
[2017-05-29] MEDS: Piperacillin/Tazobactam 3.375 GM in D5% in Water (Mini-Bag+) 100 ML IVPB SCH (20:01)
[2017-05-29] MEDS ORDERED: *HR* Metoprolol 5 MG/5 ML VIAL IVP ONE (22:26)
[2017-05-29 23:12] LABS: Basophils % 0.3 %; Hemoglobin 8.5 g/dL (12.9-16.9)
[2017-05-29 23:14] LABS: Basophils # 0.1 K/mcL (0.0-0.2); Eosinophils # 0.3 K/mcL (0.0-0.6); Eosinophils % 1.8 %; Hematocrit 27.8 % (37.5-50.1); Immature Granulocytes % 1.3 % (0-4); Immature Platelets 9.2 % (1.1-6.1); Lymphocytes # 1.1 K/mcL (0.6-4.6); Lymphocytes % 5.8 %; Mean Corpuscular HGB Conc 30.6 g/dL (31.6-35.5); Mean Corpuscular Hemoglobin 25.2 pg (28.0-33.3); Mean Corpuscular Volume 82.5 fL (83.0-100.0); Monocytes % 10.9 %; Red Blood Count 3.37 M/mcL (4.19-5.50); Red Cell Distribution Width 25.9 % (11.5-14.5); Segmented Neutrophils % 79.9 %
[2017-05-29 23:19] LABS: Neutrophils # 14.5 K/mcL (1.6-8.9)
[2017-05-29 23:20] LABS: Platelet Count 49 K/mcL (140-400)
[2017-05-29 23:22] LABS: INR 2.6
[2017-05-29 23:36] LABS: Anisocytosis 3+ (Not Present); Hypochromasia Present (Not Present)
[2017-05-29 23:39] LABS: Platelet Estimate Decreased (Normal)
[2017-05-30] MEDS ORDERED: Vancomycin 1,000 MG in D5% in Water 250 ML IVPB SCH
[2017-05-30] MEDS: Vancomycin 1,000 MG in D5% in Water 250 ML IVPB SCH ×2 (00:17→12:53)
[2017-05-30] MEDS: 0.9 % Sodium Chloride 1,000 ML IVC SCH (03:24)
[2017-05-30] MEDS: Piperacillin/Tazobactam 3.375 GM in D5% in Water (Mini-Bag+) 100 ML IVPB SCH (03:25)
[2017-05-30 04:44] LABS: Monocytes % 11.2 %; Red Cell Distribution Width 26.2 % (11.5-14.5)
[2017-05-30 04:46] LABS: Basophils % 0.2 %; Eosinophils # 0.3 K/mcL (0.0-0.6); Eosinophils % 1.5 %; Hematocrit 26.6 % (37.5-50.1); Hemoglobin 7.9 g/dL (12.9-16.9); Immature Granulocytes % 1.5 % (0-4); Immature Platelets 11.6 % (1.1-6.1); Lymphocytes # 1.2 K/mcL (0.6-4.6); Lymphocytes % 6.5 %; Mean Corpuscular HGB Conc 29.7 g/dL (31.6-35.5); Mean Corpuscular Hemoglobin 24.6 pg (28.0-33.3); Mean Corpuscular Volume 82.9 fL (83.0-100.0); Neutrophils # 14.2 K/mcL (1.6-8.9); Red Blood Count 3.21 M/mcL (4.19-5.50); Segmented Neutrophils % 79.1 %
[2017-05-30 04:50] LABS: Platelet Count 40 K/mcL (140-400)
[2017-05-30 04:53] LABS: INR 2.7; Prothrombin Time 29.2 Seconds (9.4-12.1)
[2017-05-30 04:56] LABS: Activated Partial Thrombo Time 32.6 Seconds (26.0-36.0)
[2017-05-30 05:05] LABS: Alanine Aminotransferase 54 Units/L (0-55); Albumin 1.2 g/dL (3.5-5.0); Albumin/Globulin Ratio 0.3 (1.1-2.2); Alkaline Phosphatase 548 Units/L (38-126); Aspartate Amino Transferase 83 Units/L (5-34); BUN/Creatinine Ratio 20 (6-26); Blood Urea Nitrogen 19 mg/dL (8-26); Calcium 7.2 mg/dL (8.6-10.8); Carbon Dioxide 21 mEq/L (19-29); Chloride 109 mEq/L (98-109); Globulin 4.8 g/dL (2.4-3.5); Glucose 100 mg/dL (70-99); Magnesium 1.4 mg/dL (1.6-2.6); Osmolality,Calculated 288 (280-300); Potassium 3.6 mEq/L (3.5-4.5); Sodium 138 mEq/L (136-145); eGFR For African Americans > 60 (> 60); eGFR For Non-African Americans > 60 (> 60)
[2017-05-30 05:06] LABS: Bilirubin,Total 4.1 mg/dL (0.2-1.2)
[2017-05-30 05:15] LABS: Hypochromasia Present (Not Present); Macrocytosis Present (Not Present); Microcytosis Present (Not Present); Platelet Estimate Decreased (Normal); Polychromasia 1+ (Not Present); Target Cells 1+ (Not Present); Tear Drop Cells 1+ (Not Present)
[2017-05-30 05:16] LABS: Anisocytosis 2+ (Not Present); Large Platelets Present (Not Present)
[2017-05-30] MEDS ORDERED: Vancomycin 1 EACH in D5% in Water 250 ML IVPB SCH (09:00)
--- NOTE | 2017-05-30 10:10 | Internal Med Progress Note ---
<Misael Alcaraz - Last Filed: 05/30/17 15:03> Date of Encounter: 05/30/17 Time of Encounter: 10:45 - Assessment and plan (1) Pancreatic cancer metastasized to liver Current Visit: Yes Status: Acute Assessment and plan: New diagnosis of pancreatic cancer with liver metastasis less than 2 weeks ago. Although it is unknown at this time whether or not pancreas as a primary site. Patient presented from his oncologist office because of overall clinical status and abnormal labs. He was found to have leukocytosis, anemia, thrombocytopenia, elevated INR, elevated bilirubin, and decreased magnesium. He was planning to start palliative chemotherapy for improvement of his quality of life Oncology has been consulted for assistance in treatment plan and management Palliative care has been consulted due to severity of patient disease and patient desires Patient has not had significant complaints of pain or anxiety, but will control as needed (2) Hyperbilirubinemia Current Visit: Yes Status: Acute Assessment and plan: Patient found to have bilirubin of 5.2 at admission, this is up from 1.8 at discharge on 05/14/17. There is concern that patient's metastatic disease could have cause obstruction of biliary ducts leading to hyperbilirubinemia. We spoke with gastroenterology regarding the possibility of biliary stenting, it was not felt that he was a good candidate for this procedure given her overall presentation and lack of identifiable area in which to stent. Patient' s elevated bilirubin could be due to direct intrahepatic invasion and metastases. We will start cholestyramine Recheck bilirubin in the a.m. (3) Sepsis Current Visit: Yes Status: Acute Assessment and plan: Presents today with leukocytosis, elevated lactic acid 3.2, tachycardia, from cytopenia and possible interstitial pneumonitis. Recent diagnosis of metastatic pancreatic cancer and is immunocompromised. Blood cultures were obtained We will obtain UA Repeat lactic acid was normal at 2.1 Empiric antibiotics with Vancomycin with pharmacy dose and Zosyn Patient initially received aggressive rehydration with improvement in his vital signs Qualifiers: Sepsis type: sepsis due to unspecified organism Qualified Code(s): A41.9 - Sepsis, unspecified organism (4) Dehydration Current Visit: Yes Status: Acute Assessment and plan: Patient had received several liters of fluid in the emergency department and was continued on 125 mL normal saline once he reached the hospital floor. This was then decreased before being stopped. Patient reports being thirsty and encourage further by mouth intake of fluids. (5) Leukocytosis Current Visit: Yes Status: Acute Assessment and plan: Patient presented with leukocytosis with white count of 17.8 followed by 18.2 now at 17.9. Unknown etiology of patient white count, but could be due to patient metastatic cancer, high bilirubin, or unknown infection. Patient placed on empiric antibiotics of vancomycin and Zosyn We will continue to monitor patient white blood cell count Qualifiers: Leukocytosis type: bandemia Qualified Code(s): D72.825 - Bandemia (6) Thrombocytopenia Current Visit: Yes Status: Acute Assessment and plan: Patient presented with platelet count 17, no active sign of bleeding. He was given 1 unit of platelets in the emergency room which brought his platelet count up to 49. When rechecked this morning by the count was 40. Continue to monitor (7) Hypomagnesemia Current Visit: Yes Status: Acute Assessment and plan: Patient presented with magnesium 1.4. He was given 400 mg magnesium in the ER. Repeat magnesium this morning was 1.4 We will give additional magnesium supplementation We will check magnesium in the a.m. (8) Hypoalbuminemia due to protein-calorie malnutrition Current Visit: Yes Status: Acute Assessment and plan: Patient reports having decreased appetite with weight loss over the last few weeks to months. We will consult nutrition for assistance in dietary supplementation (9) Diarrhea Current Visit: Yes Status: Acute Assessment and plan: C. difficile toxin assay negative We will start Imodium Qualifiers: Diarrhea type: unspecified type Qualified Code(s): R19.7 - Diarrhea, unspecified - Subjective Interval history: Patient seen and examined at bedside today with Dr. Nelson and Dr. Partida present. Patient's daughter also present. Patient reports having felt uncomfortable and fatigued that the worsening for one month. He had been in the hospital 3 weeks ago he was diagnosed with metastatic cancer that appeared to be pancreatic in origin, though no discrete pancreatic masses seen. He was supposed to begin palliative chemotherapy but due to laboratory abnormalities seen as oncologist office yesterday he was sent to the hospital. Monos abnormalities were leukocytosis, anemia, and thrombocytopenia. He also had elevated alkaline phosphatase and bilirubin that was 3 times higher than it had been when he is discharged from the hospital 2 weeks ago. Had a long discussion with the patient and his daughter regarding what their desires were for his future care the desire for him to have quality time if possible. As of this morning he reports having no pain or abdominal discomfort. He has no chest pain, shortness of breath - Constitutional Vitals: Temp Pulse Resp BP Pulse Ox 97.2 F L 101 18 103/62 94 05/30/17 08:15 05/30/17 08:15 05/30/17 08:15 05/30/17 08:15 05/30/17 08:15 General appearance: Present: cachectic, A&O X 3, underweight, answers questions appropriately Exam: General: Cooperative, pleasant, cachectic, jaundiced, mild distress, alert and oriented 3, answers questions appropriately HEENT: Normocephalic, atraumatic, sunken temples, scleral icterus present neck supple, trachea midline, conjunctival pallor, PERRL, oral mucosa moist, white plaques on posterior oropharynx Respiratory: No accessory muscle usage, clear to auscultation bilaterally, no wheezes/rhonchi/rales appreciated Cardiovascular: Regular rate and rhythm, S1 and S2 present, no murmurs/rubs/ gallops/clicks appreciated GI/abdominal: Distention, tenderness and upper right quadrant, firm, fluid wave equivocal, no caput medusa, no spider angiomata observed, normal bowel sounds, no peritoneal signs Extremities: No calf tenderness, noncyanotic, wild 1+ pedal edema, left calf larger than right calf, warm, lower extremity pulses palpable and symmetrical Neurological: Alert and oriented 3, no facial droop, no focal deficits Skin: Dry, intact, slight jaundice Internal Medicine: Result - Labs CBC & Chem 7: 05/30/17 04:30 05/30/17 04:30 Labs: Short CBC 05/29/17 05/29/17 05/30/17 Range/Units 13:54 23:06 04:30 WBC 17.8 H 18.2 H 17.9 H (4.3-11.1) K/mcL Hgb 8.1 L 8.5 L 7.9 L (12.9-16.9) g/dL Hct 26.9 L 27.8 L 26.6 L (37.5-50.1) % Plt Count 17 L* D 49 L D 40 L (140-400) K/mcL Neutrophils # 15.0 H 14.5 H 14.2 H (1.6-8.9) K/mcL BMP 05/30/17 04:30 Sodium 138 Potassium 3.6 Chloride 109 Carbon Dioxide 21 BUN 19 Creatinine 0.95 Glucose 100 H Calcium 7.2 L Liver Function 05/30/17 Range/Units 04:30 Total Bilirubin 4.1 H (0.2-1.2) mg/dL AST 83 H (5-34) Units/L ALT 54 (0-55) Units/L Alkaline Phosphatase 548 H (38-126) Units/L Albumin 1.2 L (3.5-5.0) g/dL - ABG Interpretation ABG results: PT/INR, D-dimer PT 29.2 Seconds (9.4-12.1) H 05/30/17 04:30 - VTE Reasons for not Prescribing Prophylaxis: Medical contraindication Consult Discharge Plan - Plan Referrals: Zaina Meade CNP [Primary Care Provider] - 06/10/17 1:00 pm <Eder Partida - Last Filed: 05/30/17 18:54> Date of Encounter: 05/30/17 - Assessment and plan (1) Diarrhea Current Visit: Yes Status: Acute Qualifiers: Diarrhea type: functional diarrhea Qualified Code(s): K59.1 - Functional diarrhea (2) Pancreatic cancer metastasized to liver Current Visit: Yes Status: Acute (3) Acute bilateral deep vein thrombosis (DVT) of femoral veins Current Visit: No Status: Acute (4) Hyperbilirubinemia Current Visit: Yes Status: Acute (5) Thrombocytopenia Current Visit: Yes Status: Acute (6) Tobacco abuse Current Visit: No Status: Chronic - Constitutional Vitals: Temp Pulse Resp BP Pulse Ox 97.9 F 104 18 117/65 94 05/30/17 15:02 05/30/17 15:02 05/30/17 15:02 05/30/17 15:02 05/30/17 15:02 Internal Medicine: Result - Labs CBC & Chem 7: 05/30/17 04:30 05/30/17 04:30 Labs: Short CBC 05/29/17 05/30/17 Range/Units 23:06 04:30 WBC 18.2 H 17.9 H (4.3-11.1) K/mcL Hgb 8.5 L 7.9 L (12.9-16.9) g/dL Hct 27.8 L 26.6 L (37.5-50.1) % Plt Count 49 L D 40 L (140-400) K/mcL Neutrophils # 14.5 H 14.2 H (1.6-8.9) K/mcL BMP 05/30/17 04:30 Sodium 138 Potassium 3.6 Chloride 109 Carbon Dioxide 21 BUN 19 Creatinine 0.95 Glucose 100 H Calcium 7.2 L Liver Function 05/30/17 Range/Units 04:30 Total Bilirubin 4.1 H (0.2-1.2) mg/dL AST 83 H (5-34) Units/L ALT 54 (0-55) Units/L Alkaline Phosphatase 548 H (38-126) Units/L Albumin 1.2 L (3.5-5.0) g/dL - ABG Interpretation ABG results: PT/INR, D-dimer PT 29.2 Seconds (9.4-12.1) H 05/30/17 04:30 - Impressions Impressions Abdomen/Pelvis CT 05/30/17 11:30 IMPRESSION: Diffuse intra-abdominal and hepatic metastases with probable new splenic metastasis versus infarct. Overall tumor burden is slightly worse in the liver. Diffuse ascites is significantly worse compared to prior study. D/ / Dashawn Dewitt MD / Dashawn Dewitt MD Interpreting Provider: Dashawn Dewitt MD - Attending Attestation I examined this patient and my medical decision-making was reviewed with the Resident Physician on 05/30/17. I agree with the documented findings, disposition and treatment plan as described except to the extent set forth below. Mr Nunn is currently admitted for dyspnea and metastatic cancer. He remains moderate to high risk due to potential for worsening clinical status. Mr Nunn is comfortable at this time. No CP. No fever or chills. Diarrhea present - stool sent. Exam Alert. Mild resp distress Heart reg No wheeze Abd distended. Nontender Edema present I/P 1. Metastatic cancer 2. Hx PE Further diagnoses and plan as above.
[2017-05-30] MEDS ORDERED: 0.9 % Sodium Chloride 1,000 ML IVC SCH (11:00)
[2017-05-30] MEDS: Nystatin SUSP 5 ML UD.LIQ PO SCH ×3 (12:53→22:07)
[2017-05-30] MEDS: Piperacillin/Tazobactam 3.375 GM in D5% in Water 50 ML IVPB SCH ×2 (12:53→23:51)
--- NOTE | 2017-05-30 14:11 | Palliative - Consult Note ---
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 Patient understands situation: During conversation with patient and family, and palliative chemotherapy may help with symptomatic management and slipped on progression of disease and that this is not curative. They are still interested in continuing this. Patient also understands that chemotherapy either to work, or if patient has any side effects patient has option of comfort care/hospice. Currently family is overwhelmed by everything that has happened within the last month and would like to have time to discuss everything. (2) Pancreatic cancer metastasized to liver Current Visit: Yes Status: Acute Assessment and plan: Patient's metastatic adenocarcinoma is most likely pancreatic/biliary in origin. Patient had endoscopy and colonoscopy during time of diagnosis last month which were negative for primary source. CA [id number] oncology on board patient still interested in palliative chemotheraphy (3) Acute bilateral deep vein thrombosis (DVT) of iliac veins of lower extremities Current Visit: Yes Status: Acute Assessment and plan: Secondary to adenocarcinoma Patient was on xeralto however this was discontinued due to anemia and thrombocytopenia (4) Diarrhea Current Visit: Yes Status: Acute Assessment and plan: Patient's had diarrhea for the last 2 weeks. C. difficile is negative. Likely secondary to large tumor burden Qualifiers: Diarrhea type: unspecified type Qualified Code(s): R19.7 - Diarrhea, unspecified (5) Thrombocytopenia Current Visit: Yes Status: Acute Assessment and plan: 2nd to malignancy CT abdomen pelvis shows tumor invasion into spleen. Also has elevated PT, APTT high risk for bleeding Palliative-CN HPI - Data of Consult Consult date: 05/30/17 Requesting Physician: Eder Partida DO Primary Care Provider: Zaina Meade Family Provider: Deanne Provider - Consult Narrative Palliative Care/Comfort Measures: Palliative care Reason for consult: pancreatic cancer History of present illness: Mr. Nunn is a 52 year old male presented to [facility] from oncology office due to leukocytosis and thrombocytopenia. Patient was diagnosed with metastatic adenocarcinoma with evidence of peritoneal carcinomatosis and malignant ascites with likely origin pancreatic/biliary. Patient's platelets were 17 on admission. Patient is also being considered to have sepsis secondary to bacterial pneumonia and is on broad-spectrum coverage. Furthermore he has had diarrhea for the last 2 weeks and the value for C. difficile. Patient followed by [facility]. During his last office visit he was offered palliative chemotherapy which she wanted to proceed with. Patient states since his diagnosis 1 month ago he has had fatigue, decreased appetite, insomnia. He denies pain, nausea, vomiting. Patient states he is not believed to the likes. He lives in a trailer by himself. Patient's daughter is BILL and 2nd MPOA is ex-. CC: Eder Partida, DO Past Med Surg Social Fam HX - Past Medical History Medical history: no medical history Psychiatric history: no psych history - Past Surgical History Surgical History: no surgical history - Social History Smoking Status: Current every day smoker Packs per day: 0.5 Smokeless Tobacco Status: No Alcohol use: none Drug use: none - Family History Mother Living Status: Still Living Hx Family Cancer: Yes Hx Family Endocrine Disorder: Yes (diabetes) Medications and Allergies LORazepam [Ativan] 1 mg PO BID PRN #60 tablet 05/14/17 [Rx] Omeprazole [PriLOSEC] 20 mg PO DAILY #30 cap 05/14/17 [Rx] Rivaroxaban [Xarelto] 15 mg PO BID 05/29/17 [History] 3 Allergy/AdvReac Type Severity Reaction Status Date / Time lidocaine Allergy Agitated Verified 05/29/17 08:22 Review of systems: Constitutional: Denies fever, chills HEENT: Denies headache, vision changes, neck pain, sore throat, rhinorrhea Heart: Denies chest pain palpitations Lungs: Shortness of breath, cough Abdomen: Denies abdominal pain nausea vomiting. Reports abdominal distention, diarrhea, decreased appetite Back: Denies back pain Kidney: Denies dysuria, hematuria Skin: warm and dry Extremities: Denies swelling, pain Neuro: Denies numbness, and tingling. Reports insomnia Palliative Care-Exam - Constitutional Vitals: Temp Pulse Resp BP Pulse Ox 97.5 F L 100 18 121/72 95 05/30/17 10:16 05/30/17 10:16 05/30/17 10:16 05/30/17 10:16 05/30/17 10:16 - Other Additional findings: General: Pleasant without distress. Cachectic appearance HEENT: Head atraumatic, normocephalic, EOMI, PERRL, dry mucous membranes Heart: Regular rate and rhythm with no murmur Lungs: Clear to auscultation bilaterally Abdomen: Soft, nontender, nondistended, distant bowel sounds Skin: warm and dry Extremities: Absent pedal edema, Neuro: Cranial nerves II through XII intact, UE and LE sensation equal bilaterally, UE and LEstrength 5/5, alert oriented 3, Vascular: Pedal and radial pulses 2 out of 4 Psych: Depressed mood Internal Medicine - CN: Reslt - Labs CBC & Chem 7: 05/30/17 04:30 05/30/17 04:30 Labs: Short CBC 05/29/17 05/29/17 05/30/17 Range/Units 13:54 23:06 04:30 WBC 17.8 H 18.2 H 17.9 H (4.3-11.1) K/mcL Hgb 8.1 L 8.5 L 7.9 L (12.9-16.9) g/dL Hct 26.9 L 27.8 L 26.6 L (37.5-50.1) % Plt Count 17 L* D 49 L D 40 L (140-400) K/mcL Neutrophils # 15.0 H 14.5 H 14.2 H (1.6-8.9) K/mcL BMP 05/30/17 04:30 Sodium 138 Potassium 3.6 Chloride 109 Carbon Dioxide 21 BUN 19 Creatinine 0.95 Glucose 100 H Calcium 7.2 L Liver Function 05/30/17 Range/Units 04:30 Total Bilirubin 4.1 H (0.2-1.2) mg/dL AST 83 H (5-34) Units/L ALT 54 (0-55) Units/L Alkaline Phosphatase 548 H (38-126) Units/L Albumin 1.2 L (3.5-5.0) g/dL - ABG Interpretation ABG results: PT/INR, D-dimer PT 29.2 Seconds (9.4-12.1) H 05/30/17 04:30 - Impressions Impressions Abdomen/Pelvis CT 05/30/17 11:30 IMPRESSION: Diffuse intra-abdominal and hepatic metastases with probable new splenic metastasis versus infarct. Overall tumor burden is slightly worse in the liver. Diffuse ascites is significantly worse compared to prior study. D/ / Dashawn Dewitt MD / Dashawn Dewitt MD Interpreting Provider: Dashawn Dewitt MD Consult Discharge Plan - Plan Referrals: Zaina Meade CNP [Primary Care Provider] - 06/10/17 1:00 pm Palliative Quality Palliative Quality: Screen for Code Status: Yes, Screen for Goals of Care: Yes, Screen for Pain: Yes, If Pain Regimen Started, Initiate Bowel Regimen: Yes, Screen for Nausea/Vomitting: Yes Code Status: 05/30/17 11:09 CODE [Resuscitation Status: Active] [RES] Routine Comment: Resuscitation Status: [id number] <Ramesh Bess - Last Filed: 05/31/17 07:01> Date of Encounter: 05/31/17 Palliative-CN HPI - Data of Consult Requesting Physician: Eder Partida DO Primary Care Provider: Zaina Meade Family Provider: SamanConwes Provider - Consult Narrative History of present illness: Mr. Nunn is a 52 year old male CC: Eder Partida DO Palliative Care-Exam - Constitutional Vitals: Temp Pulse Resp BP Pulse Ox 97.9 F 107 16 119/69 93 05/31/17 04:07 05/31/17 04:07 05/31/17 04:07 05/31/17 04:07 05/31/17 04:07 Internal Medicine - CN: Reslt - Labs CBC & Chem 7: 05/31/17 05:02 05/31/17 05:02 Labs: Short CBC 05/31/17 Range/Units 05:02 WBC 17.3 H (4.3-11.1) K/mcL Hgb 8.6 L (12.9-16.9) g/dL Hct 29.4 L (37.5-50.1) % Plt Count 27 L* (140-400) K/mcL Neutrophils # 13.3 H (1.6-8.9) K/mcL BMP 05/31/17 05:02 Sodium 138 Potassium 3.4 L Chloride 109 Carbon Dioxide 20 BUN 19 Creatinine 1.00 Glucose 113 H Calcium 7.2 L Liver Function 05/31/17 Range/Units 05:02 Total Bilirubin 3.8 H (0.2-1.2) mg/dL AST 66 H (5-34) Units/L ALT 51 (0-55) Units/L Alkaline Phosphatase 506 H (38-126) Units/L Albumin 1.1 L (3.5-5.0) g/dL - ABG Interpretation ABG results: PT/INR, D-dimer PT 29.2 Seconds (9.4-12.1) H 05/30/17 04:30 - Impressions Impressions Abdomen/Pelvis CT 05/30/17 11:30 IMPRESSION: Diffuse intra-abdominal and hepatic metastases with probable new splenic metastasis versus infarct. Overall tumor burden is slightly worse in the liver. Diffuse ascites is significantly worse compared to prior study. D/ / Dashawn Dewitt MD / Dashawn Dewitt MD Interpreting Provider: Dashawn Dewitt MD - Attending Attestation I examined this patient and my medical decision-making was reviewed with the Resident Physician. I agree with the documented findings, disposition and treatment plan as described except to the extent set forth below. Palliative Quality Code Status: 05/30/17 11:09 CODE [Resuscitation Status: Active] [RES] Routine Comment: Resuscitation Status: [id number]
[2017-05-30] MEDS: Magnesium Oxide 400 MG TABLET PO SCH (15:57)
[2017-05-30] MEDS: Cholestyramine 4 GM POWD.PACK PO SCH (17:10)
--- NOTE | 2017-05-30 18:25 | Oncology Inp Progress Note ---
Date of Encounter: 05/30/17 Time of Encounter: 17:00 (1) Hepatic metastases Current Visit: No Status: Acute Assessment and plan: Unknown primary, likely pancreatic, biliary tract with reimaging studies showing worsening of liver metastatic disease with further elevation in bilirubin, patient lethargic but able to communicate and oriented. He wished to take palliative chemotherapy, but due to continued worsening of performance status, and lab abnormalities he is unable to receive chemotherapy/ targeted therapy. He understands that he is very weak at this time to tolerate therapy and wants to go home to spend time with family with help of hospice care. Pain control- meds being ordered and optimize for comfort level. IV site to be checked Discussed with patient's nursing staff. Patient/friends concerns addressed bedside, contact us with further questions. Oncology: Subj Interval history: abdominal discomfort and back pain - Constitutional Vitals: Vital Signs Temp Pulse Resp BP Pulse Ox 05/30/17 15:02 97.9 F 104 18 117/65 94 05/30/17 10:16 97.5 F L 100 18 121/72 95 05/30/17 08:15 97.2 F L 101 18 103/62 94 05/30/17 03:51 98.3 F 99 16 125/73 93 05/29/17 23:20 98.7 F 108 34 129/79 93 05/29/17 22:11 98.8 F 125 36 118/71 92 05/29/17 20:10 99.4 F 116 34 115/71 05/29/17 18:47 98.3 F 115 23 127/78 94 05/29/17 18:37 98.0 F 116 23 135/78 95 Intake and Output 05/30/17 05/30/17 05/30/17 07:59 15:59 23:59 Intake Total 1450 / 1450 0 / 0 320 / 320 Output Total 100 / 100 175 / 175 Balance 1350 / 1350 -175 / -175 320 / 320 Intake: IV Fluids 1450 / 1450 300 / 300 0.9 % Sodium Chloride 1,000 ML 1000 / 1000 @ 125 mls/hr IVC .Q8H ABUNDIO Rx#: [id number] Zosyn 3.375 GM In Dextrose 5% ( 200 / 200 Minibag+) 100 ML 100 ML @ 25 mls/hr IVPB Q8H ABUNDIO Rx#: [id number] Zosyn 3.375 GM In Dextrose 5% ( 50 / 50 ADD-Henderson) 50 ML @ 12.5 mls/ hr IVPB Q8H ABUNDIO Rx#:[id number] Vancocin 1,000 MG In Dextrose 5 250 / 250 250 / 250 % 250 ML @ 167 mls/hr IVPB Q12H ABUNDIO Rx#:[id number] Oral 0 / 0 0 / 0 20 / 20 Output: Urine 100 / 100 175 / 175 Other: Meal NPO Dinner Percent of Meal Consumed 0% 5% Stool Size Moderate Large Stool Consistency loose loose soft Stool Color Brown Brown # Voids 1 # Bowel Movements 0 Weight 65.4 kg Patient Weight 05/30/17 23:59 Weight 65.4 kg Exam: lethargic - Head Head exam: Present: atraumatic - Eye Eye exam: Present: scleral icterus - ENT ENT exam: Present: mucous membranes dry - Neck Neck exam: Present: normal inspection - Respiratory Respiratory exam: Present: CTAB - Cardiovascular Cardiovascular exam: Present: +S1, +S2 - GI/Abdominal GI/Abdominal exam: Present: distended, firm, soft - Neurological Exam Neurological exam: Present: alert, CN II-XII intact, oriented X3 - Psychiatric Psychiatric exam: Present: normal mood - Skin Skin exam: Present: pallor, warm Oncology: Obj Data - Labs CBC & Chem 7: 05/30/17 04:30 05/30/17 04:30 Labs: Laboratory Results - last 24 hr 05/29/17 05/29/17 05/29/17 13:54 15:53 23:05 WBC RBC Hgb Hct MCV MCH MCHC RDW Plt Count MPV Immature Gran % Seg Neutrophils % Lymphocytes % Monocytes % Eosinophils % Basophils % Neutrophils # Lymphocytes # Monocytes # Eosinophils # Basophils # Platelet Estimate Large Platelets Immature Plt Fraction Polychromasia Hypochromasia Anisocytosis Microcytosis Macrocytosis Target Cells Tear Drop Cells Smear Path Review See Below PT 29.0 H D INR 2.6 D APTT Sodium Potassium Chloride Carbon Dioxide BUN Creatinine Est GFR ( Amer) Est GFR (Non-Af Amer) BUN/Creatinine Ratio Glucose Calculated Osmolality Calcium Phosphorus Magnesium Total Bilirubin AST ALT Alkaline Phosphatase Serum Total Protein Albumin Globulin Albumin/Globulin Ratio Stl C. diff Tox B Gene Blood Type O POSITIVE Antibody Screen NEGATIVE 05/29/17 05/30/17 05/30/17 23:06 04:30 04:30 WBC 18.2 H 17.9 H RBC 3.37 L 3.21 L Hgb 8.5 L 7.9 L Hct 27.8 L 26.6 L MCV 82.5 L 82.9 L MCH 25.2 L 24.6 L MCHC 30.6 L 29.7 L RDW 25.9 H 26.2 H Plt Count 49 L D 40 L MPV TNP Immature Gran % 1.3 1.5 Seg Neutrophils % 79.9 79.1 Lymphocytes % 5.8 6.5 Monocytes % 10.9 11.2 Eosinophils % 1.8 1.5 Basophils % 0.3 0.2 Neutrophils # 14.5 H 14.2 H Lymphocytes # 1.1 1.2 Monocytes # 2.0 H 2.0 H Eosinophils # 0.3 0.3 Basophils # 0.1 0.0 Platelet Estimate Decreased L Decreased L Large Platelets Present A Immature Plt Fraction 9.2 H 11.6 H Polychromasia 1+ A Hypochromasia Present A Present A Anisocytosis 3+ A 2+ A Microcytosis Present A Macrocytosis Present A Target Cells 1+ A Tear Drop Cells 1+ A Smear Path Review PT 29.2 H INR 2.7 APTT 32.6 Sodium Potassium Chloride Carbon Dioxide BUN Creatinine Est GFR ( Amer) Est GFR (Non-Af Amer) BUN/Creatinine Ratio Glucose Calculated Osmolality Calcium Phosphorus Magnesium Total Bilirubin AST ALT Alkaline Phosphatase Serum Total Protein Albumin Globulin Albumin/Globulin Ratio Stl C. diff Tox B Gene Blood Type Antibody Screen 05/30/17 05/30/17 04:30 10:20 WBC RBC Hgb Hct MCV MCH MCHC RDW Plt Count MPV Immature Gran % Seg Neutrophils % Lymphocytes % Monocytes % Eosinophils % Basophils % Neutrophils # Lymphocytes # Monocytes # Eosinophils # Basophils # Platelet Estimate Large Platelets Immature Plt Fraction Polychromasia Hypochromasia Anisocytosis Microcytosis Macrocytosis Target Cells Tear Drop Cells Smear Path Review PT INR APTT Sodium 138 Potassium 3.6 Chloride 109 Carbon Dioxide 21 BUN 19 Creatinine 0.95 Est GFR ( Amer) > 60 Est GFR (Non-Af Amer) > 60 BUN/Creatinine Ratio 20 Glucose 100 H Calculated Osmolality 288 Calcium 7.2 L Phosphorus 3.0 Magnesium 1.4 L Total Bilirubin 4.1 H AST 83 H ALT 54 Alkaline Phosphatase 548 H Serum Total Protein 6.0 Albumin 1.2 L Globulin 4.8 H Albumin/Globulin Ratio 0.3 L Stl C. diff Tox B Gene Negative Blood Type Antibody Screen - Impressions Impressions Abdomen/Pelvis CT 05/30/17 11:30 IMPRESSION: Diffuse intra-abdominal and hepatic metastases with probable new splenic metastasis versus infarct. Overall tumor burden is slightly worse in the liver. Diffuse ascites is significantly worse compared to prior study. D/ / Dashawn Dewitt MD / Dashawn Dewitt MD Interpreting Provider: Dashawn Dewitt MD - Imaging and cardiology CT scan - abdomen Status: image reviewed by me - ABG Interpretation ABG results: PT/INR, D-dimer PT 29.2 Seconds (9.4-12.1) H 05/30/17 04:30 Consult Discharge Plan - Plan Referrals: Zaina Meade CNP [Primary Care Provider] - 06/10/17 1:00 pm
[2017-05-30] MEDS: *HR* Morphine 2 MG/ML SYRINGE IVP PRN (18:40)
[2017-05-30] MEDS ORDERED: Mirtazapine 15 MG TABLET PO SCH (21:00)
[2017-05-30] MEDS: *HR* OxyCODONE Immed Rel 5 MG TABLET PO PRN (22:08)
[2017-05-31] MEDS: Vancomycin 1,000 MG in D5% in Water 250 ML IVPB SCH ×2 (02:30→14:49)
[2017-05-31] MEDS: Piperacillin/Tazobactam 3.375 GM in D5% in Water 50 ML IVPB SCH ×2 (04:29→14:50)
[2017-05-31] MEDS: *HR* Morphine 2 MG/ML SYRINGE IVP PRN (04:29)
[2017-05-31 05:28] LABS: Hemoglobin 8.6 g/dL (12.9-16.9)
[2017-05-31] MEDS: *HR* OxyCODONE Immed Rel 5 MG TABLET PO PRN (05:28)
[2017-05-31 05:30] LABS: Basophils # 0.1 K/mcL (0.0-0.2); Basophils % 0.5 %; Eosinophils # 0.4 K/mcL (0.0-0.6); Eosinophils % 2.4 %; Hematocrit 29.4 % (37.5-50.1); Immature Granulocytes % 1.4 % (0-4); Immature Platelets 16.4 % (1.1-6.1); Lymphocytes # 1.1 K/mcL (0.6-4.6); Lymphocytes % 6.4 %; Mean Corpuscular HGB Conc 29.3 g/dL (31.6-35.5); Mean Corpuscular Hemoglobin 24.8 pg (28.0-33.3); Mean Corpuscular Volume 84.7 fL (83.0-100.0); Monocytes # 2.1 K/mcL (0.0-1.3); Monocytes % 12.3 %; Neutrophils # 13.3 K/mcL (1.6-8.9); Red Blood Count 3.47 M/mcL (4.19-5.50); Red Cell Distribution Width 26.4 % (11.5-14.5)
[2017-05-31 05:35] LABS: Platelet Count 27 K/mcL (140-400)
[2017-05-31 05:39] LABS: Alanine Aminotransferase 51 Units/L (0-55); Albumin/Globulin Ratio 0.2 (1.1-2.2); Alkaline Phosphatase 506 Units/L (38-126); Aspartate Amino Transferase 66 Units/L (5-34); BUN/Creatinine Ratio 19 (6-26); Bilirubin,Total 3.8 mg/dL (0.2-1.2); Blood Urea Nitrogen 19 mg/dL (8-26); Calcium 7.2 mg/dL (8.6-10.8); Carbon Dioxide 20 mEq/L (19-29); Chloride 109 mEq/L (98-109); Globulin 4.8 g/dL (2.4-3.5); Glucose 113 mg/dL (70-99); Magnesium 1.6 mg/dL (1.6-2.6); Osmolality,Calculated 289 (280-300); Phosphorous 3.1 mg/dL (2.3-4.7); Potassium 3.4 mEq/L (3.5-4.5); Total Protein 5.9 g/dL (6.0-8.3); eGFR For African Americans > 60 (> 60); eGFR For Non-African Americans > 60 (> 60)
[2017-05-31 05:40] LABS: Albumin 1.1 g/dL (3.5-5.0); Sodium 138 mEq/L (136-145)
[2017-05-31 05:50] LABS: Anisocytosis 2+ (Not Present); Hypochromasia Present (Not Present); Large Platelets Present (Not Present); Macrocytosis Present (Not Present); Platelet Estimate Decreased (Normal); Toxic Granulation Present (Not Present)
--- NOTE | 2017-05-31 07:56 | Palliative Progress Note ---
<Deon Diaz - Last Filed: 05/31/17 07:54> Date of Encounter: 05/31/17 Time of Encounter: 07:54 - Assessment and plan (1) Goals of care, counseling/discussion Current Visit: Yes Status: Acute Assessment and plan: patient decided to transition to hospice have introduced options for hospice providers and patient will discuss with family before choosing currently denies pain, N/V (2) Pancreatic cancer metastasized to liver Current Visit: Yes Status: Acute Assessment and plan: Patient's metastatic adenocarcinoma, unknown primary but is most likely pancreatic/biliary in origin. Patient had endoscopy and colonoscopy during time of diagnosis last month which were negative for primary source. CA 19-9 2220 oncology on board>>not candidate for palliative chemotheraphy>>now transitioning to hospice. (3) Acute bilateral deep vein thrombosis (DVT) of iliac veins of lower extremities Current Visit: Yes Status: Acute Assessment and plan: Secondary to adenocarcinoma Patient was on xeralto however this was discontinued due to anemia and thrombocytopenia thrombocytopenia worsening (4) Diarrhea Current Visit: Yes Status: Acute Assessment and plan: continues to have soft loose stool on imodium c-dif negative Qualifiers: Diarrhea type: functional diarrhea Qualified Code(s): K59.1 - Functional diarrhea (5) Thrombocytopenia Current Visit: Yes Status: Acute Assessment and plan: worsening as per primary (6) Insomnia Current Visit: Yes Status: Acute Assessment and plan: 2nd to newly diagnosed pancreatic cancer patient states he has had difficulty sleeping due to this diagnosis started patient on mirtazapine Qualifiers: Insomnia type: psychophysiologic Qualified Code(s): F51.04 - Psychophysiologic insomnia (7) Decreased appetite Current Visit: Yes Status: Acute Assessment and plan: Reports decreased appetite Likely secondary to cancer Patient started on mirtazapine - Time Spent With Patient Total time spent is greater than 50% in coordination of care (as documented) at patient's floor/unit and/or counseling patient: - Subjective Interval history: Patient lying comfortably in bed. No acute overnight events. Patient family was Patient oncology yesterday and have decided on transitioning to hospice. - Constitutional Vitals: Abnormal lab results WBC 17.3 K/mcL (4.3-11.1) H 05/31/17 05:02 RBC 3.47 M/mcL (4.19-5.50) L 05/31/17 05:02 Hgb 8.6 g/dL (12.9-16.9) L 05/31/17 05:02 Hct 29.4 % (37.5-50.1) L 05/31/17 05:02 MCH 24.8 pg (28.0-33.3) L 05/31/17 05:02 MCHC 29.3 g/dL (31.6-35.5) L 05/31/17 05:02 RDW 26.4 % (11.5-14.5) H 05/31/17 05:02 Plt Count 27 K/mcL (140-400) L* 05/31/17 05:02 Neutrophils # 13.3 K/mcL (1.6-8.9) H 05/31/17 05:02 Monocytes # 2.1 K/mcL (0.0-1.3) H 05/31/17 05:02 Toxic Granulation Present (Not Present) A 05/31/17 05:02 Platelet Estimate Decreased (Normal) L 05/31/17 05:02 Large Platelets Present (Not Present) A 05/31/17 05:02 Immature Plt Fraction 16.4 % (1.1-6.1) H 05/31/17 05:02 Polychromasia 1+ (Not Present) A 05/30/17 04:30 Hypochromasia Present (Not Present) A 05/31/17 05:02 Anisocytosis 2+ (Not Present) A 05/31/17 05:02 Microcytosis Present (Not Present) A 05/30/17 04:30 Macrocytosis Present (Not Present) A 05/31/17 05:02 Target Cells 1+ (Not Present) A 05/30/17 04:30 Tear Drop Cells 1+ (Not Present) A 05/30/17 04:30 PT 29.2 Seconds (9.4-12.1) H 05/30/17 04:30 Potassium 3.4 mEq/L (3.5-4.5) L 05/31/17 05:02 Glucose 113 mg/dL (70-99) H 05/31/17 05:02 Calcium 7.2 mg/dL (8.6-10.8) L 05/31/17 05:02 Total Bilirubin 3.8 mg/dL (0.2-1.2) H 05/31/17 05:02 AST 66 Units/L (5-34) H 05/31/17 05:02 Alkaline Phosphatase 506 Units/L (38-126) H 05/31/17 05:02 Lactate Dehydrogenase 752 Units/L (159-327) H 05/29/17 10:51 Serum Total Protein 5.9 g/dL (6.0-8.3) L 05/31/17 05:02 Albumin 1.1 g/dL (3.5-5.0) L 05/31/17 05:02 Globulin 4.8 g/dL (2.4-3.5) H 05/31/17 05:02 Albumin/Globulin Ratio 0.2 (1.1-2.2) L 05/31/17 05:02 - Additional findings Additional findings: General: Pleasant without distress. Cachectic appearance Heart: Regular rate and rhythm with no murmur Lungs: Clear to auscultation bilaterally Abdomen: Soft, nontender, distended distant bowel sounds Skin: warm and dry Extremities: Absent pedal edema, Neuro: Cranial nerves II through XII intact, UE and LE sensation equal bilaterally, UE and LEstrength 5/5, alert oriented 3, Vascular: Pedal and radial pulses 2 out of 4 Psych: Depressed mood Palliative Quality Palliative Quality: Screen for Code Status: Yes, Screen for Goals of Care: Yes, Screen for Pain: Yes, If Pain Regimen Started, Initiate Bowel Regimen: Yes, Screen for Nausea/Vomitting: Yes Code Status: 05/30/17 11:09 CODE [Resuscitation Status: Active] [RES] Routine Comment: Resuscitation Status: [id number] - Labs CBC & Chem 7: 05/31/17 05:02 05/31/17 05:02 Labs: Laboratory Results - last 24 hr 05/30/17 05/31/17 05/31/17 10:20 05:02 05:02 WBC 17.3 H RBC 3.47 L Hgb 8.6 L Hct 29.4 L MCV 84.7 MCH 24.8 L MCHC 29.3 L RDW 26.4 H Plt Count 27 L* MPV TNP Immature Gran % 1.4 Seg Neutrophils % 77.0 Lymphocytes % 6.4 Monocytes % 12.3 Eosinophils % 2.4 Basophils % 0.5 Neutrophils # 13.3 H Lymphocytes # 1.1 Monocytes # 2.1 H Eosinophils # 0.4 Basophils # 0.1 Toxic Granulation Present A Platelet Estimate Decreased L Large Platelets Present A Immature Plt Fraction 16.4 H Hypochromasia Present A Anisocytosis 2+ A Macrocytosis Present A Sodium 138 Potassium 3.4 L Chloride 109 Carbon Dioxide 20 BUN 19 Creatinine 1.00 Est GFR ( Amer) > 60 Est GFR (Non-Af Amer) > 60 BUN/Creatinine Ratio 19 Glucose 113 H Calculated Osmolality 289 Calcium 7.2 L Phosphorus 3.1 Magnesium 1.6 Total Bilirubin 3.8 H AST 66 H ALT 51 Alkaline Phosphatase 506 H Serum Total Protein 5.9 L Albumin 1.1 L Globulin 4.8 H Albumin/Globulin Ratio 0.2 L Stl C. diff Tox B Gene Negative - Impressions Impressions Abdomen/Pelvis CT 05/30/17 11:30 IMPRESSION: Diffuse intra-abdominal and hepatic metastases with probable new splenic metastasis versus infarct. Overall tumor burden is slightly worse in the liver. Diffuse ascites is significantly worse compared to prior study. D/ / Dashawn Dewitt MD / Dashawn Dewitt MD Interpreting Provider: Dashawn Dewitt MD - ABG Interpretation ABG results: PT/INR, D-dimer PT 29.2 Seconds (9.4-12.1) H 05/30/17 04:30 Consult Discharge Plan - Plan Referrals: Zaina Meade CNP [Primary Care Provider] - 06/10/17 1:00 pm <Ramesh Bess - Last Filed: 05/31/17 09:15> Date of Encounter: 05/31/17 - Time Spent With Patient Total time spent is greater than 50% in coordination of care (as documented) at patient's floor/unit and/or counseling patient: - Constitutional Vitals: Abnormal lab results WBC 17.3 K/mcL (4.3-11.1) H 05/31/17 05:02 RBC 3.47 M/mcL (4.19-5.50) L 05/31/17 05:02 Hgb 8.6 g/dL (12.9-16.9) L 05/31/17 05:02 Hct 29.4 % (37.5-50.1) L 05/31/17 05:02 MCH 24.8 pg (28.0-33.3) L 05/31/17 05:02 MCHC 29.3 g/dL (31.6-35.5) L 05/31/17 05:02 RDW 26.4 % (11.5-14.5) H 05/31/17 05:02 Plt Count 27 K/mcL (140-400) L* 05/31/17 05:02 Neutrophils # 13.3 K/mcL (1.6-8.9) H 05/31/17 05:02 Monocytes # 2.1 K/mcL (0.0-1.3) H 05/31/17 05:02 Toxic Granulation Present (Not Present) A 05/31/17 05:02 Platelet Estimate Decreased (Normal) L 05/31/17 05:02 Large Platelets Present (Not Present) A 05/31/17 05:02 Immature Plt Fraction 16.4 % (1.1-6.1) H 05/31/17 05:02 Polychromasia 1+ (Not Present) A 05/30/17 04:30 Hypochromasia Present (Not Present) A 05/31/17 05:02 Anisocytosis 2+ (Not Present) A 05/31/17 05:02 Microcytosis Present (Not Present) A 05/30/17 04:30 Macrocytosis Present (Not Present) A 05/31/17 05:02 Target Cells 1+ (Not Present) A 05/30/17 04:30 Tear Drop Cells 1+ (Not Present) A 05/30/17 04:30 PT 29.2 Seconds (9.4-12.1) H 05/30/17 04:30 Potassium 3.4 mEq/L (3.5-4.5) L 05/31/17 05:02 Glucose 113 mg/dL (70-99) H 05/31/17 05:02 Calcium 7.2 mg/dL (8.6-10.8) L 05/31/17 05:02 Total Bilirubin 3.8 mg/dL (0.2-1.2) H 05/31/17 05:02 AST 66 Units/L (5-34) H 05/31/17 05:02 Alkaline Phosphatase 506 Units/L (38-126) H 05/31/17 05:02 Lactate Dehydrogenase 752 Units/L (159-327) H 05/29/17 10:51 Serum Total Protein 5.9 g/dL (6.0-8.3) L 05/31/17 05:02 Albumin 1.1 g/dL (3.5-5.0) L 05/31/17 05:02 Globulin 4.8 g/dL (2.4-3.5) H 05/31/17 05:02 Albumin/Globulin Ratio 0.2 (1.1-2.2) L 05/31/17 05:02 - Attending Attestation I examined this patient and my medical decision-making was reviewed with the Resident Physician. I agree with the documented findings, disposition and treatment plan as described except to the extent set forth below. Palliative Quality Code Status: 05/30/17 11:09 CODE [Resuscitation Status: Active] [RES] Routine Comment: Resuscitation Status: [id number] - Labs CBC & Chem 7: 05/31/17 05:02 05/31/17 05:02 Labs: Laboratory Results - last 24 hr 05/30/17 05/31/17 05/31/17 10:20 05:02 05:02 WBC 17.3 H RBC 3.47 L Hgb 8.6 L Hct 29.4 L MCV 84.7 MCH 24.8 L MCHC 29.3 L RDW 26.4 H Plt Count 27 L* MPV TNP Immature Gran % 1.4 Seg Neutrophils % 77.0 Lymphocytes % 6.4 Monocytes % 12.3 Eosinophils % 2.4 Basophils % 0.5 Neutrophils # 13.3 H Lymphocytes # 1.1 Monocytes # 2.1 H Eosinophils # 0.4 Basophils # 0.1 Toxic Granulation Present A Platelet Estimate Decreased L Large Platelets Present A Immature Plt Fraction 16.4 H Hypochromasia Present A Anisocytosis 2+ A Macrocytosis Present A Sodium 138 Potassium 3.4 L Chloride 109 Carbon Dioxide 20 BUN 19 Creatinine 1.00 Est GFR ( Amer) > 60 Est GFR (Non-Af Amer) > 60 BUN/Creatinine Ratio 19 Glucose 113 H Calculated Osmolality 289 Calcium 7.2 L Phosphorus 3.1 Magnesium 1.6 Total Bilirubin 3.8 H AST 66 H ALT 51 Alkaline Phosphatase 506 H Serum Total Protein 5.9 L Albumin 1.1 L Globulin 4.8 H Albumin/Globulin Ratio 0.2 L Stl C. diff Tox B Gene Negative - Impressions Impressions Abdomen/Pelvis CT 05/30/17 11:30
[2017-05-31] MEDS: Cholestyramine 4 GM POWD.PACK PO SCH (08:15)
[2017-05-31] MEDS: Magnesium Oxide 400 MG TABLET PO SCH (10:38)
[2017-05-31] MEDS: Nystatin SUSP 5 ML UD.LIQ PO SCH ×2 (10:38→14:48)
--- NOTE | 2017-05-31 11:09 | Electrocardiograph Report ---
[address] [address] Test Date: 2017-05-29 Pat Name: Nam Nunn Department: 102 Room: 3A11 Gender: M Machine Designer: Nivia : 1965 Requested By: Sanaz See Order Number: [id number] Reading MD: Zaria Yu Measurements Intervals Keymar Rate: 120 P: 77 VA: 128 QRS: 51 QRSD: 74 T: 60 QT: 301 QTc: 372 Interpretive Statements SINUS TACHYCARDIA ABNORMAL RHYTHM ECG Electronically Signed On 05-31-2017 11:08:14 EDT by Zaria Yu
[2017-05-31 15:26] VITALS: BP 122/74
--- NOTE | 2017-05-31 15:26 | Discharge Summary ---
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 (2) Diarrhea Priority: Secondary Status: Acute Qualifiers: Diarrhea type: functional diarrhea Qualified Code(s): K59.1 - Functional diarrhea (3) Acute bilateral deep vein thrombosis (DVT) of femoral veins Priority: Secondary Status: Chronic (4) Hyperbilirubinemia Priority: Secondary Status: Acute (5) Thrombocytopenia Priority: Secondary Status: Acute (6) Tobacco abuse Priority: Secondary Status: Chronic (7) Hypoalbuminemia Priority: Secondary Status: Chronic (8) Insomnia Priority: Secondary Status: Chronic Qualifiers: Insomnia type: psychophysiologic Qualified Code(s): F51.04 - Psychophysiologic insomnia (9) Sepsis Priority: Secondary Status: Resolved Qualifiers: Sepsis type: sepsis due to unspecified organism Qualified Code(s): A41.9 - Sepsis, unspecified organism (10) Oral thrush Priority: Secondary Status: Chronic - Discharge Medications Prescriptions: Cholestyramine 4 gm PO BIDAC #10 powd.pack LORazepam [Ativan] 1 mg PO BID PRN #60 tablet PRN Reason: Anxiety Mirtazapine [Remeron] 15 mg PO HS #30 tablet Nystatin [Nystatin Suspension] 100,000 unit PO QID #40 oral.susp Home Medications: Omeprazole [PriLOSEC] 20 mg PO DAILY #30 cap 05/14/17 [Rx] Cholestyramine 4 gm PO BIDAC #10 powd.pack 05/31/17 [Rx] LORazepam [Ativan] 1 mg PO BID PRN #60 tablet 05/31/17 [Rx] Loperamide [Imodium] 2 mg PO Q4HR PRN capsule 05/31/17 [Rx] Mirtazapine [Remeron] 15 mg PO HS #30 tablet 05/31/17 [Rx] Nystatin [Nystatin Suspension] 100,000 unit PO QID #40 oral.susp 05/31/17 [Rx] OxyCODONE Immed Rel [Roxicodone 5 MG] 5 mg PO Q4HR PRN tablet 05/31/17 [Rx] Allergies/Adverse Reactions: 3 Allergy/AdvReac Type Severity Reaction Status Date / Time lidocaine Allergy Agitated Verified 05/29/17 08:22 Procedures/tests Complete & Pending: Procedures Performed prior 72 hours Category Date Time Status CT abd pelvis wo no iv no oral [CT] Stat Cat Scan 05/30/17 11:30 Completed Date of admission: 05/29/17 12:57 Primary care physician: Zaina Meade Consults: 05/29/17 13:34 consult to stenotype machine operator [Consult to Nutrition] [CONS] Routine Comment: Consulting Provider: NUTRITION Reason for Dietary Consult: PO Supplementation 05/30/17 10:52 Consult to Gastroenterology [CONS] Routine Consulting Provider: Gastroenter[facility] [place] Reason for Consult: Concern for possible need of biliary stent Call Completed: Yes Consult to Oncology [CONS] Routine Consulting Provider: Oncology [facility] Reason for Consult: Patient of Dr. Silvestre sent from the office yesterday with significant lab abnormalities. Call Completed: Yes Consult to Palliative Care [CONS] Routine Comment: Consulting Provider: Palliative Care [facility] Reason for Consult: Metastatic pancreatic cancer. He is interested in potential quality of life concerns. Call Completed: Yes Discharging clinician: Eder Partida Anticipated date of discharge: 05/31/17 - Patient Status Disposition: Hospice - Home Condition: Serious Functional capacity at discharge: independent ambulation Overall status at discharge: patient is not back to baseline - Discharge Instructions Follow Up With: Zaina Meade CNP [Primary Care Provider] - 06/10/17 1:00 pm - Diet and Activity Activity: increase activity as tolerated Diet: advance to your usual diet Hospital course: Mr. Nunn is a 52 year old male presented to ED from oncology office due to leukocytosis and thrombocytopenia. He was evaluated and subsequently admitted with presumed sepsis. Mr Nunn had been diagnosed with bilateral DVTs and PEs earlier in April and at that time had also been found to have adenocarcinoma in his liver. Primary site not identified at that time. He was being followed by oncology and the thought was that it was metastatic pancreatic cancer or cholangiocarcinoma. He was following up in office when labs were noted and patient admitted to nonproductive cough as well. Mr Nunn was admitted to med surg. He was started on IV fluids and abx. He was noted to have significant hyperbilirubinemia and repeat CT showed increase in size of liver masses and some ascites. GI was contacted but this did not able to be a large CBD obstruction so intervention was not indicated. Stool was negative for C diff. He continued to have some diarrhea. He was seen by oncology and due to his overall decline he is not a candidate for palliative chemo. He has elected to go home with hospice care. Abx have been stopped. [facility] here and he will be going home today. Intake nurse will go to home tonight or tomorrow. - Time Spent with Patient Total time spent providing and/or coordinating discharge services: 39min - Constitutional Vitals: Temp Pulse Resp BP Pulse Ox 98.4 F 50 16 121/70 100 05/31/17 15:14 05/31/17 15:14 05/31/17 15:14 05/31/17 15:14 05/31/17 15:14 General appearance: Present: cachectic, A&O X 3, underweight, answers questions appropriately - Head Head exam: Present: normocephalic - Eye Eye exam: Present: EOMI, scleral icterus - ENT ENT exam: Present: mucous membranes moist - Respiratory Respiratory exam: Present: decreased breath sounds. Absent: wheezes - Cardiovascular Cardiovascular exam: Present: RRR. Absent: tachycardia - GI/Abdominal GI/Abdominal exam: Present: hepatomegaly, soft - Extremities Exam Extremities exam: Present: pedal edema, warm - Neurological Exam Neurological exam: Present: alert, oriented X3 - Skin Skin exam: Present: warm Additional comments: Jaundice noted. - VTE Reasons for not Prescribing Prophylaxis: Medical contraindication
--- NOTE | 2017-05-31 15:28 | Physician Discharge Referral ---
Home Health/Hosp Referral Info Transfer to: Hospice Provider in Charge Post Discharge: Department Manager - Diagnosis (1) Diarrhea Priority: Secondary Status: Acute (2) Pancreatic cancer metastasized to liver Priority: Primary Status: Acute (3) Acute bilateral deep vein thrombosis (DVT) of femoral veins Priority: Secondary Status: Chronic (4) Hyperbilirubinemia Priority: Secondary Status: Acute (5) Thrombocytopenia Priority: Secondary Status: Acute (6) Tobacco abuse Priority: Secondary Status: Chronic - Respiratory Orders Smoking Cessation: Smoking cessation has been advised. For more information, call the [place] Tobacco Quit Line at 4-770-KSBU-NOW. - Diet/Nutrition Diet/Nutrition Orders: Regular - Activity Activity Orders: Up ad carolyne - Services Needed Following services are medically necessary services: Nursing, Home Health Aide - Transfer Medications Prescriptions: Cholestyramine 4 gm PO BIDAC #10 powd.pack LORazepam [Ativan] 1 mg PO BID PRN #60 tablet PRN Reason: Anxiety Mirtazapine [Remeron] 15 mg PO HS #30 tablet Nystatin [Nystatin Suspension] 100,000 unit PO QID #40 oral.susp Home Medications: Omeprazole [PriLOSEC] 20 mg PO DAILY #30 cap 05/14/17 [Rx] Cholestyramine 4 gm PO BIDAC #10 powd.pack 05/31/17 [Rx] LORazepam [Ativan] 1 mg PO BID PRN #60 tablet 05/31/17 [Rx] Loperamide [Imodium] 2 mg PO Q4HR PRN capsule 05/31/17 [Rx] Mirtazapine [Remeron] 15 mg PO HS #30 tablet 05/31/17 [Rx] Nystatin [Nystatin Suspension] 100,000 unit PO QID #40 oral.susp 05/31/17 [Rx] OxyCODONE Immed Rel [Roxicodone 5 MG] 5 mg PO Q4HR PRN tablet 05/31/17 [Rx] Allergies/Adverse Reactions: 3 Allergy/AdvReac Type Severity Reaction Status Date / Time lidocaine Allergy Agitated Verified 05/29/17 08:22 Certification: Further, I certify that my clinical findings support that this patient is homebound (i.e. absences from home require considerable and taxing effort and are for medical reasons or hindu services or infrequently or short duration when for other reasons) because: Homebound Reason: Patient requires assistance of a person or device to safely leave home, Leaving home requires considerable and taxing effort due to condition, Severity of cardiac or pulmonary status limits activity tolerance Attestation: My signature below is to certify that this patient is under my care and that I, or nurse practitioner, or a physician's assistant commissioner working with me, has a face-to -face encounter with this patient.
[2017-05-31] MEDS ORDERED: Aminoglycoside Consult 1 EACH MC ONE (16:23)
== END 2017-05-31 16:24 | disposition hospice, home (50) | DRG 871 ==
LOC: 3ANU 09:50 → EMEROO 09:50 → SUATTDRO 12:57 → 3ANU 13:17
PROVIDERS: ADMIT Hospitalist; ATTEND Internal Medicine